=== PATIENT | male | born 1970 | race Caucasian/White ===

== ENCOUNTER 2018-11-08 22:13 | Emergency (ER) | payer OTHER, SELFPAY ==
[2018-11-08] VITALS (11 sets, daily range): BP systolic 108–146; BP diastolic 68–85; PULSE 102–111; RESP 16–22; TEMP 36.7–37.1; O2SAT 88–93
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
[2018-11-08 22:41] LABS: Abs Immature Grans 0.03 k/cumm (0.0-0.09); Absolute Basophil Count 0.02 k/cumm (0.0-0.2); Absolute Lymphocyte Count 1.85 k/cumm (1.2-3.4); Absolute Monocyte Count 0.75 k/cumm (0.11-0.7); Basophils % 0.3; Eosinophils % 1.6; HCT 50.1 % (40.0-50.0); HGB 16.9 g/dL (13.5-17.5); Immature Grans % 0.5; Lymphocytes % 29.6; Mean Corp. HGB Concentration 33.7 g/dL (32.0-36.0); Mean Corpuscular Hemoglobin 32.9 pg (27.0-33.0); Mean Corpuscular Volume 97.7 fL (80-95); Mean Platelet Volume 8.5 fL (8.0-11.0); Platelet Count 117 x1000/uL (130-400); RBC 5.13 m/cumm (4.50-6.00); RBC Distribution Width 13.1 % (11.8-14.1); White Blood Cell Count 6.25 k/cumm (4.4-10.8)
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
[2018-11-08 22:52] LABS: Prothrombin Time 10.3 sec (9.3-11.0)
[2018-11-08] MEDS: Normal Saline Flush 10 ML SYR IVP (22:53)
[2018-11-08] MEDS: THIAMINE 100 MG in Normal Saline 100 ML 200 MG IVPB (22:53)
[2018-11-08] MEDS: Normal Saline 250 ML IV (22:53)
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
[2018-11-08 22:57] LABS: ALT 46 U/L (12-78); AST 82 U/L (15-37); Albumin 2.8 g/dL (3.4-5.0); Alkaline Phosphatase 159 U/L (46-116); Anion Gap 12.6 mmol/L (3-11); BUN 4 mg/dL (7-18); Bilirubin, Total 0.7 mg/dL (0.2-1.0); CO2 26.4 mmol/L (21.0-32.0); CREATININE 0.79 mg/dL (0.70-1.30); Chloride 95 mmol/L (98-107); ETHANOL BLOOD 364.4 mg/dL (<3); Glucose 147 mg/dL (70-100); Potassium 3.8 mmol/L (3.5-5.1); Sodium 134 mmol/L (136-145)
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
[2018-11-08 22:59] LABS: Troponin I < 0.05 ng/mL (0.00-0.06)
[2018-11-08] MEDS: Omnipaque 350 MG/ML 100 ML BTL IJ (23:00)
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
[2018-11-08 23:59] LABS: *AMPHETAMINES SCREEN URINE Negative (Negative); *BARBITURATES SCREEN URINE Negative (Negative); *BENZODIAZEPINES SCREEN URINE Negative (Negative); Cannabinoids THC Negative (Negative); Cocaine Screen,Urine Negative (Negative); METHADONE URINE SCREEN Negative (Negative); OPIATES URINE SCREEN Negative (Negative)
[2018-11-09 00:05] LABS: Tricyclic Antidepressants Negative (Negative)
== END 2018-11-08 23:49 | disposition home or self-care (01) ==
LOC: ER 11-09 00:41
PROVIDERS: Emergency Provider Student in an Organized Health Care Education/Training Program
DX: S00.83XA Contusion of other part of head, initial encounter (principal); S30.1XXA Contusion of abdominal wall, initial encounter; R45.851 Suicidal ideations; D69.6 Thrombocytopenia, unspecified; V43.52XA Car driver injured in collision with other type car in traffic accident, initial encounter; F10.120 Alcohol abuse with intoxication, uncomplicated; Y90.8 Blood alcohol level of 240 mg/100 ml or more; Y35.813A Legal intervention involving manhandling, suspect injured, initial encounter
CPT/HCPCS: 36415; 74177; 80053; 80307; 86850; 86900; 86901; 96361; 96365; 99285; 70450; 71260; 72125; 80320; 84484; 85025; 85610; J3490

== ENCOUNTER 2020-10-24 10:00 | Inpatient (IN) | payer MEDICAID, SELFPAY ==
[2020-10-24] VITALS (58 sets, daily range): BP systolic 94–149; BP diastolic 66–101; PULSE 84–102; RESP 8–32; TEMP 36.3–36.6; O2SAT 75–96
--- NOTE | 2020-10-24 10:00 | RT.EKG_ITS ---
APPROVED REPORT Exam: Resting ECG Reason for Exam: shortness of breath Patient Location: E HR:93 bpm ECG Measurements Heart Rate 93 AXIS DC 149 P 35 QRSd 88 QRS 154 QT 377 T -13 QTc 470 Conclusion Sinus rhythm.. Anteroseptal infarct, age indeterminate...Q >35mS, T neg, V1-V2
[2020-10-24] MEDS: Normal Saline Flush 10 ML SYR IVP ×2 (10:10→15:53)
[2020-10-24] MEDS: Albuterol/Ipratropium 3 ML UPD VIAL UPD (10:35)
--- NOTE | 2020-10-24 10:37 | W.ED.GENAD ---
Discharge Plan Disposition Patient Disposition: [facility] INPATIENT Condition: Stable Discharge Details Clinical Impression: Congestive heart failure (CHF) Admit Date/Time: 10/24/20 13:02 Admit Provider: Fran Hsu Attending Provider: Fran Hsu Primary Care Provider: None,None ED Provider: Tr Ruiz Medical Decision Making This is a pleasant 50-year-old male who reports weeks to months of progressive shortness of breath and asthma, associated with 30 pound weight gain and peripheral edema. He denies to me chest pain. He has not seen a doctor in 30 years and reports that he had been waiting to obtain health insurance. He arrives to the ER with 84% sat on room air, blood pressure 136/98, pulse 96. He is grossly edematous with clinical evidence of fluid overload. Differential diagnosis includes liver disease, CHF, hypoproteinemia, renal disease. IV access established, screening laboratories and screening EKG obtained which shows T wave inversions Q waves anteriorly. Patient's laboratories show a white count of 5, hematocrit of 54, platelets 111. Troponin is negative. Liver enzymes unremarkable. D-dimer is elevated at 2092. Patient referred for imaging of chest and pelvis. CT: See formal report. No evidence of PE. Positive anasarca. At this time, most consistent with fluid overload. No evidence of acute NH. I feel there is high probability that the patient did have previous NH/underlying cardiac dysfunction. Diuretics initiated, the patient will benefit from further restratification and functional study likely to include echocardiogram. Case discussed with Dr. Aleman and patient to be admitted. HPI General Date/Time Provider Initiated Documentation: 10/24/20 10:22. History of Present Illness 50 year old M presents to the emergency department with the chief complaint of Shortness of breath and weight gain with swelling of extremities and abd, described as moderate, and is localized to the chest, abdomen and lower extremity. Patient started experiencing this week(s) and it has been intermittent. Rest improves symptom(s), Movement worsens symptoms . Patient notes shortness of breath; denies chest pain, cough and syncope. Patient did receive the following treatments prior to arrival, none Related Data Home Medications Medication Instructions Recorded Confirmed Unknown [No Known Home Meds] 11/08/18 10/24/20 Allergies Allergy/AdvReac Type Severity Reaction Status Date / Time No Known Allergies Allergy Unverified 10/24/20 10:11 General Stated Complaint: SOB KRISTIN: 2 Review of Systems Narrative: Approximately 30 pound weight gain over weeks to months. Lower extremity and abdomen swelling. Shortness of breath, sometimes with exertion. Denies chest pain. Reports full vaccination for Covid. [facility] Medical History Alcohol abuse Surgical History History of tonsillectomy Family History (Updated 10/24/20 @ 11:03 by Tr Ruiz MD) Mother Heart disease Social History Smoking/Tobacco Use Status: Current every day Tobacco Type: cigarettes Smoking risk assessment performed?: Yes Alcohol Intake: current Alcohol Intake frequency: 3 or more drinks per day Alcohol type: beer Drug use: Never Substance use type: does not use Do you feel safe at home: Yes Do you feel safe in your relationship?: Yes Exam Narrative Exam Narrative: GEN: awake, alert, oriented 3. Pleasant, well groomed, interactive. HEAD: Normocephalic, atraumatic ENT: Mucous membranes moist, oropharynx unremarkable, External ear exam unremarkable EYES: PERRL, EOMI NECK: Full ROM, no JESSICA, no menigismus CHEST/RESP: Nontender, bibasilar rales present CARDIOVASCULAR: RRR, no murmur, rub sabas. 2+ Rad pulse bilateral ABDOMEN: Soft, distended, no mass. +Bowel sounds EXT: Full ROM, 2-3+ peripheral/pretibial edema, no rash Neuro: Grossly normal neurologic exam, conversant, interactive. Psych: Speech fluent, thoughts congruent, affect normal Course Vital Signs Vital signs: Vital Signs Pulse Oximetry 87 L 10/24/20 10:05 Temperature 36.6 C 10/24/20 10:06 Temperature Source Temporal Artery Scan 10/24/20 10:06 Pulse 90 10/24/20 10:16 Pulse 95 H 10/24/20 10:20 Respiratory Rate 25 H 10/24/20 10:20 Respiratory Effort Labored 10/24/20 10:26 Respiratory Depth Normal 10/24/20 10:26 Respiratory Pattern Normal 10/24/20 10:26 Blood Pressure 125/74 10/24/20 10:16 Blood Pressure Mean 85 10/24/20 10:16 Blood Pressure Position Supine 10/24/20 10:06 Pulse Oximetry 84 L 10/24/20 10:20 Oxygen Delivery Method Nasal Cannula 10/24/20 10:12 Oxygen Flow Rate 3 10/24/20 10:12 Pain Level 6 10/24/20 10:06
[2020-10-24 11:10] LABS: Abs Immature Grans 0.04 10^3/uL (0.0-0.06); Absolute Basophil Count 0.04 10^3/uL (0.0-0.2); Absolute Eosinophil Count 0.04 10^3/uL (0.0-0.7); Absolute Lymphocyte Count 1.18 10^3/uL (1.2-3.4); Absolute Monocyte Count 1.04 10^3/uL (0.1-0.8); Absolute Neutrophil Count 3.61 10^3/uL (1.2-6.7); Basophils % 0.7; Eosinophils % 0.7; HCT 54.4 % (40.0-50.0); HGB 16.3 g/dL (13.5-17.5); Immature Grans % 0.7; Lymphocytes % 19.8; MCV 96.8 fL (80-95); MPV 9.6 fL (8.0-11.0); Monocytes % 17.5; Neutrophils % 60.6; Nucleated RBC 0 %; Platelet Count 111 10^3/uL (130-400); RBC 5.62 10^6/uL (4.36-5.78); RDW 14.2 % (11.8-14.1); RDW-SD 51.3 fL; WBC 5.95 10^3/uL (4.4-10.8)
[2020-10-24 11:25] LABS: INR 1.2 (0.9-1.1); Prothrombin Time 11.6 sec (9.3-11.0)
[2020-10-24 11:32] LABS: ALT 34 U/L (16-63); AST 27 U/L (15-37); Albumin 2.7 g/dL (3.4-5.0); Alkaline Phosphatase 138 U/L (46-116); Anion Gap -0.2 mmol/L (3-11); BUN 14 mg/dL (7-18); Bilirubin, Total 0.9 mg/dL (0.2-1.0); CO2 36.2 mmol/L (21.0-32.0); CREATININE 1.1 mg/dL (0.70-1.30); Calcium 8.1 mg/dL (8.5-10.1); Chloride 101 mmol/L (98-107); Glucose 149 mg/dL (74-106); Magnesium 1.9 mg/dL (1.8-2.4); NT-proBNP 4982 pg/mL (<300); Sodium 137 mmol/L (136-145); Total Protein 6.6 g/dL (6.4-8.2); Troponin I < 0.05 ng/mL (<0.06)
[2020-10-24 11:40] LABS: D-Dimer 2092 ng/mlFEU (<500)
[2020-10-24] MEDS: Normal Saline - Diluent 50 ML VIAL IV (12:05)
--- NOTE | 2020-10-24 12:05 | DI.CT_ITS ---
Exam(s) CT CHEST PE ABD PELVIS W EXAM: CT CHEST PE ABD PELVIS W CLINICAL HISTORY: CHF, weight gain, peripheral edema. TECHNIQUE: Imaging Protocol: Axial CT angiography was performed with multi-slice acquisition and m ulti-planar and/or 3D reconstructions. CONTRAST MATERIAL: Intravenous: Omnipaque 350 Contrast volume:100 ml Oral: None COMPARISON: CT CT CHEST/ABD/PEL W from 11/08/2018 FINDINGS: CHEST: PULMONARY ARTERIES: There are no intra-arterial filling defects to suggest the presence of acute pulm onary emboli. LUNGS: There is no evidence of pulmonary infarction.Mild increased markings both lung bases. There a re no pleural effusions.No focal findings in the trachea and mainstem bronchi. MEDIASTINUM: There is no hilar nor mediastinal adenopathy. Visualized thyroid unremarkable. CARDIAC: Mild cardiomegaly. No pericardial effusion. Caliber of the thoracic aorta is within normal limits. OSSEOUS: No significant osseous lesions.. ABDOMEN: There is now generalized symmetrical anasarca as well as a small amount of perihepatic ascites. LIVER: There are no focal hepatic lesions nor dilatation of intrahepatic ducts. GALLBLADDER/BILIARY: No obvious gallbladder pathology. CBD is not dilated. PANCREAS: No evidence of pancreatic mass nor dilatation of the pancreatic duct. SPLEEN: Spleen is not enlarged. There are no intrasplenic lesions. Splenic and portal veins are liu nt. ADRENALS: There are no significant adrenal masses. KIDNEYS:No cysts evident. No calculi nor hydronephrosis. No solid renal masses. ABDOMINAL AORTA: Abdominal aorta is not enlarged. LYMPH NODES: There is no retroperitoneal or para-aortic adenopathy. ABDOMINAL WALL/GI: No evidence of significant anterior abdominal wall hernia. Previously present lef t of center anterior abdominal wall hematoma has significantly decreased in size since November 2018 PELVIS: LYMPH NODES: There is no intrapelvic nor inguinal adenopathy. GI: No evidence of appendicitis.No evidence of sigmoid diverticulitis. URINARY BLADDER: No calculi nor masses evident REPRODUCTIVE: Prostate is not enlarged. OSSEOUS: No significant osseous lesions. IMPRESSION: 1. No evidence of acute pulmonary emboli nor pulmonary infarction. 2. There are no pleural effusions.Mild cardiomegaly noted 3. There is now generalized anasarca as well as a small amount of ascites and haziness of the mesente ry. 4. There is no evidence of bowel obstruction, free air, nor abscess 5. The anterior abdominal wall subcutaneous hematoma which was evident on the CT scan of November 2018 casas s significantly decreased in size. Report called to ER physician RADIATION DOSE DELIVERED: 2,575.43mGy.cm Total DLP DATA REPOSITORY: All CT scans at this facility are submitted to the National Radiology Data Registry (NRDR) Dose Index Registry (DIR) with the [employer] (ACR). RADIATION OPTIMIZATION: All CT scans at this facility use at least one of these dose optimization te chniques: automated exposure control; mA and/or kV adjustment per patient size (includes targeted exa ms where dose is matched to clinical indication); or iterative reconstruction.
[2020-10-24] MEDS: Omnipaque 350 MG/ML 100 ML BTL IJ (12:07)
[2020-10-24] MEDS: Omnipaque 350 MG/ML 50 ML BTL IJ (12:09)
[2020-10-24 12:54] LABS: Source Nasal/Nares
[2020-10-24] MEDS: Furosemide 20 MG/2 ML VIAL IVP (12:55)
[2020-10-24] MEDS: Aspirin 325 MG TAB PO (13:00)
--- NOTE | 2020-10-24 13:59 | W.PM.HP.N ---
Date of service: 10/24/20 Time of Service: 13:59 Assessment and Plan Assessment and plan (1) Congestive heart failure (CHF): Status: Chronic Assessment and plan: admit to med/surg, telemetry echocardiogram results pending continue diuresis. cycle troponins monitor I&O, daily weights. (2) Morbid obesity: Status: Acute Assessment and plan: add hemoglobin A1C nutrition consult (3) Nicotine dependence: Status: Acute Assessment and plan: replacement while hospitalized (4) DVT prophylaxis: Status: Acute Assessment and plan: enoxaparin ashanti wraps (5) Discharge planning issues: Status: Acute Assessment and plan: case management following will need to establish with pcp anticipate discharge to home with no services. discussed with Dr Hsu. History of Present Illness History of Present Illness Chief Complaint: shortness of breath Narrative: This is a 50-year-old male who reports weeks to months of progressive shortness of breath and asthma, associated with 30 pound weight gain and peripheral edema. He has not seen a doctor in 30 years and reports that he had been waiting to obtain health insurance. He arrives to the ED with 84% sat on room air, blood pressure 136/98, pulse 96. He is grossly edematous with clinical evidence of fluid overload. Work up show a white count of 5, hematocrit of 54, platelets 111. Troponin is negative. Liver enzymes unremarkable. D-dimer is elevated at 2092. CT chest abd/pelvis shows no evidence of PE. Positive anasarca. Received IV lasix for fluid overload. No evidence of acute GA. Case was discussed with hospitalist services who accepts for admission for further management, monitoring and evaluation. Review of Systems All systems reviewed & are unremarkable except as noted in HPI and below Constitutional Constitutional: Denies fever(s) ENT Ears, Nose, Mouth, and Throat: Denies vertigo and Denies dizziness Cardiovascular Cardiovascular: Denies chest pain, Reports leg edema, Reports dyspnea, Reports dyspnea on exertion and Reports orthopnea Respiratory Respiratory: Reports dyspnea and Reports dyspnea on exertion Gastrointestinal Gastrointestinal: Denies abdominal pain Genitourinary Genitourinary: Denies difficulty urinating Musculoskeletal Musculoskeletal: Denies myalgias Integumentary/Breasts Skin/Breast: Denies lesions and Denies rash Neurologic Neurologic: Denies confusion, Denies vertigo and Denies dizziness Psychiatric Psychiatric: Denies confusion [facility] Medical History Alcohol abuse Surgical History History of tonsillectomy Family History (Updated 10/24/20 @ 11:03 by Tr Ruiz MD) Mother Heart disease Social History Smoking/Tobacco Use Status: Current every day Tobacco Type: cigarettes Smoking risk assessment performed?: Yes Alcohol Intake: current Alcohol Intake frequency: 3 or more drinks per day Alcohol type: beer Drug use: Never Substance use type: does not use Do you feel safe at home: Yes Do you feel safe in your relationship?: Yes Meds Allergies and Home Medications Allergies Allergy/AdvReac Type Severity Reaction Status Date / Time No Known Allergies Allergy Unverified 10/24/20 10:11 Home Medications Medication Instructions Recorded Confirmed Type Unknown [No Known Home Meds] 11/08/18 10/24/20 History Exam Narrative Exam Narrative: GEN: awake, alert, oriented 3. Pleasant, face flushed, morbidly obese HEAD: Normocephalic, atraumatic ENT: Mucous membranes moist, oropharynx unremarkable EYES: non-icteric, EOMI NECK: short CHEST/RESP: respirations even and unlabored, bases diminished, no wheezing CARDIOVASCULAR: RRR, no murmur, anasarca ABDOMEN: obese, soft, distended, +Bowel sounds EXT: Full ROM, 2-3+ edema, chronic discoloration to bilateral lower extremity consistent with venous stasis changes Neuro: awake and oriented. Psych: mood and affect normal Results Labs Result diagrams: 10/24/20 11:00 10/24/20 11:00 Labs: Laboratory Results - last 24 hr 10/24/20 10/24/20 10/24/20 10:10 10:10 10:10 WBC Cancelled RBC Cancelled Hgb Cancelled Hct Cancelled MCV Cancelled MCH Cancelled MCHC Cancelled RDW Cancelled Plt Count Cancelled MPV Cancelled Immature Gran % Cancelled Neutrophils % Cancelled Band Neutrophils % Cancelled Lymphocytes % Cancelled Atypical Lymphs % Cancelled Monocytes % Cancelled Eosinophils % Cancelled Basophils % Cancelled Metamyelocytes % Cancelled Myelocytes % Cancelled Promyelocytes % Cancelled Other Cells % Cancelled Nucleated RBC % Cancelled Absolute Neutrophils Cancelled Absolute Lymphocytes Cancelled Absolute Monocytes Cancelled Absolute Eosinophils Cancelled Absolute Basophils Cancelled RBC Morphology Cancelled Polychromasia Cancelled Hypochromasia Cancelled Poikilocytosis Cancelled Basophilic Stippling Cancelled Anisocytosis Cancelled Microcytosis Cancelled Macrocytosis Cancelled Spherocytes Cancelled Tear Drop Cells Cancelled Ovalocytes Cancelled Stomatocytes Cancelled [place] Bodies Cancelled [place] Cells/Echinocytes Cancelled Acanthocytes (Spur) Cancelled Schistocytes Cancelled PT Cancelled INR Cancelled APTT Cancelled D-Dimer Cancelled Sodium Cancelled Potassium Cancelled Chloride Cancelled Carbon Dioxide Cancelled Anion Gap Cancelled BUN Cancelled Creatinine Cancelled Estimated GFR/1.73 m2 Cancelled Glucose Cancelled Calcium Cancelled Magnesium Cancelled Total Bilirubin Cancelled AST Cancelled ALT Cancelled Alkaline Phosphatase Cancelled Troponin I Cancelled NT-Pro-B Natriuret Pep Cancelled Total Protein Cancelled Albumin Cancelled COVID-19 Source 10/24/20 10/24/20 10/24/20 11:00 11:00 11:00 WBC 5.95 RBC 5.62 Hgb 16.3 Hct 54.4 H MCV 96.8 H MCH 29.0 MCHC 30.0 L RDW 14.2 H Plt Count 111 L MPV 9.6 Immature Gran % 0.7 Neutrophils % 60.6 Band Neutrophils % Lymphocytes % 19.8 Atypical Lymphs % Monocytes % 17.5 Eosinophils % 0.7 Basophils % 0.7 Metamyelocytes % Myelocytes % Promyelocytes % Other Cells % Nucleated RBC % 0 Absolute Neutrophils 3.61 Absolute Lymphocytes 1.18 L Absolute Monocytes 1.04 H Absolute Eosinophils 0.04 Absolute Basophils 0.04 RBC Morphology Polychromasia Hypochromasia Poikilocytosis Basophilic Stippling Anisocytosis Microcytosis Macrocytosis Spherocytes Tear Drop Cells Ovalocytes Stomatocytes [place] Bodies [place] Cells/Echinocytes Acanthocytes (Spur) Schistocytes PT 11.6 H INR 1.2 H APTT 24.0 D-Dimer 2092 H Sodium 137 Potassium 5.0 Chloride 101 Carbon Dioxide 36.2 H Anion Gap -0.2 L BUN 14 Creatinine 1.1 Estimated GFR/1.73 m2 >= 60.00 Glucose 149 H Calcium 8.1 L Magnesium 1.9 Total Bilirubin 0.9 AST 27 ALT 34 Alkaline Phosphatase 138 H Troponin I < 0.05 NT-Pro-B Natriuret Pep 4982 H Total Protein 6.6 Albumin 2.7 L COVID-19 Source 10/24/20 12:45 WBC RBC Hgb Hct MCV MCH MCHC RDW Plt Count MPV Immature Gran % Neutrophils % Band Neutrophils % Lymphocytes % Atypical Lymphs % Monocytes % Eosinophils % Basophils % Metamyelocytes % Myelocytes % Promyelocytes % Other Cells % Nucleated RBC % Absolute Neutrophils Absolute Lymphocytes Absolute Monocytes Absolute Eosinophils Absolute Basophils RBC Morphology Polychromasia Hypochromasia Poikilocytosis Basophilic Stippling Anisocytosis Microcytosis Macrocytosis Spherocytes Tear Drop Cells Ovalocytes Stomatocytes [place] Bodies [place] Cells/Echinocytes Acanthocytes (Spur) Schistocytes PT INR APTT D-Dimer Sodium Potassium Chloride Carbon Dioxide Anion Gap BUN Creatinine Estimated GFR/1.73 m2 Glucose Calcium Magnesium Total Bilirubin AST ALT Alkaline Phosphatase Troponin I NT-Pro-B Natriuret Pep Total Protein Albumin COVID-19 Source Nasal/nares Last Vital Signs Temp 36.6 C 10/24/20 10:06 Pulse 92 H 10/24/20 10:31 Resp 22 10/24/20 10:40 BP 125/83 10/24/20 10:31 Pulse Ox 93 10/24/20 10:40
[2020-10-24 14:11] LABS: Troponin I < 0.05 ng/mL (<0.06)
[2020-10-24] MEDS: Furosemide 40 MG/4 ML VIAL IVP (15:53)
--- NOTE | 2020-10-24 18:38 | NUR.NOTE ---
Nursing Note: Pt o2 saturation decreasing intermittently to 75% while asleep on 4L 02 via NC. Resp therapy notified. Pt placed on CPAP - tolerating well 02 saturation 92%.
[2020-10-24 20:35] LABS: Troponin I < 0.05 ng/mL (<0.06)
[2020-10-24 22:07] LABS: COVID-19 PCR Negative (Negative)
[2020-10-25] VITALS (19 sets, daily range): BP systolic 117–134; BP diastolic 63–82; PULSE 89–104; RESP 12–22; TEMP 36.4–37.3; O2SAT 90–100
[2020-10-25 07:01] LABS: Abs Immature Grans 0.04 10^3/uL (0.0-0.06); Absolute Basophil Count 0.04 10^3/uL (0.0-0.2); Absolute Eosinophil Count 0.08 10^3/uL (0.0-0.7); Absolute Lymphocyte Count 1.06 10^3/uL (1.2-3.4); Absolute Monocyte Count 0.89 10^3/uL (0.1-0.8); Absolute Neutrophil Count 3.98 10^3/uL (1.2-6.7); Basophils % 0.7; Eosinophils % 1.3; HGB 17.4 g/dL (13.5-17.5); Immature Grans % 0.7; Lymphocytes % 17.4; MCH 29.5 pg (27.0-33.0); MCHC 29.3 % (32.0-36.0); MCV 100.8 fL (80-95); Monocytes % 14.6; Neutrophils % 65.3; Nucleated RBC 0 %; Platelet Count 105 10^3/uL (130-400); RBC 5.89 10^6/uL (4.36-5.78); RDW 14.4 % (11.8-14.1); RDW-SD 54.4 fL; WBC 6.09 10^3/uL (4.4-10.8)
[2020-10-25 07:08] LABS: HCT 59.4 % (40.0-50.0)
--- NOTE | 2020-10-25 07:14 | PDOC.CMIN ---
- If Service Date Differs Date of service: 10/25/20 Time of Service: 07:14 Care Management Initial Assess REASON FOR HOSPITALIZATION:: CHF PAST MEDICAL HISTORY/PAST SURGICAL HISTORY:: Medical History. Alcohol abuse. Surgical History . History of tonsillectomy PREVIOUS FUNCTIONAL STATUS/SOCIAL/FAMILY SUPPORTS:: Gustavo lives alone in a single family home in [place], [place]. He has 2 sons who live locally that he is close to. Gustavo identifies friends and family as strong sources of support for him, including his sons, his Mom and a nephew. He works in the kitchen at [employer], is independent at baseline and continues to drive. CURRENT FUNCTIONAL STATUS:: Gustavo was sitting up in a chair when CM met with him. He expressed concern about being in the hospital as he has no insurance yet. He stated that he is about 2 weeks away from having insurance. He has just started working at [employer] and his insurance will be effective when he reaches 60 days. Gustavo also is without a PCP. CM explained the process for establishing with a new PCP and assured him that he will be scheduled for an appointment at discharge. If he chooses to pursue that provider, the practice staff will assist with the process. CM provided Gustavo with a copy of the [facility] Patient Assistance packet. ADVANCE DIRECTIVES:: none on file and is not interested at this time. Has patient been provided with info about the portal/API?: Yes Did the patient sign up for the portal?: No CODE STATUS:: Full Code INSURANCE COVERAGE / FINANCIAL ISSUES:: self pay CURRENT HOME/COMMUNITY SERVICES/EQUIPMENT:: none PRIMARY CARE PHYSICIAN:: none. Julia Oliver on as tele-doc POTENTIAL DISCHARGE NEEDS:: establish with PCP. Insurance PATIENT/FAMILY EDUCATION NEEDS:: Review of discharge plan, limitations, follow up plan, medications, Ask Me Three ANTICIPATED BARRIERS TO DISCHARGE:: Lack of insurance and a PCP may provide a bit of a barrier if additional services are needed at discharge. TRANSPORTATION:: via private vehicle with friends/family PLAN:: Gustavo will likely be discharged home with no new services. He will follow up with the on-call PCP ( Julia Oliver) and discharge plan of care. Gustavo will transport with friends or family. CM will continue to support Gustavo and assess for discharge planning needs.
[2020-10-25 07:15] LABS: Anion Gap 4.6 mmol/L (3-11); BUN 15 mg/dL (7-18); CO2 36.4 mmol/L (21.0-32.0); CREATININE 1.1 mg/dL (0.70-1.30); Calcium 8.3 mg/dL (8.5-10.1); Chloride 96 mmol/L (98-107); Glucose 130 mg/dL (74-106); Potassium 4.4 mmol/L (3.5-5.1); Sodium 137 mmol/L (136-145)
[2020-10-25 07:16] LABS: Troponin I < 0.05 ng/mL (<0.06)
[2020-10-25] MEDS: Enoxaparin 40 MG/0.4 ML SYR SC (09:21)
--- NOTE | 2020-10-25 09:46 | W.PM.PROGNOT ---
Date of Service Date of service: 10/25/20 Time of Service: 09:46 Assessment and Plan Assessment and plan (1) Respiratory failure: Status: Acute Assessment and plan: with multiple etiologies suspected to be contributing: suspected KATY: noted to desat into the 70's overnight. cpap was applied with improvement while sleeping suspected COPD: long history of tobacco abuse but no PFT/work up. will start symbicort CHF: duiresing well but remains hypoxic with moderate oxygen requirements PE: ruled out by CTA pneumonia: no evidence on CT scan, no fever, no cough. (2) Congestive heart failure (CHF): Status: Chronic Assessment and plan: troponin has remained negative echocardiogram:no obvious segmental wall motion abnormalities, RV moderately dilated and moderately hypokinetic, PASP 46, no significant valvular disease continue diuresis. monitor I&O, daily weights. (3) Diabetes mellitus type 2 in obese: Status: Acute Assessment and plan: new diagnosis A1C 7.0 diabetic diet diabetic education (4) Morbid obesity: Status: Chronic Assessment and plan: add hemoglobin A1C nutrition consult (5) Nicotine dependence: Status: Chronic Assessment and plan: replacement while hospitalized (6) DVT prophylaxis: Status: Acute Assessment and plan: enoxaparin ashanti wraps (7) Discharge planning issues: Status: Acute Assessment and plan: case management following will need to establish with pcp anticipate discharge to home with no services. discussed with Dr Hsu. Subjective Subjective Interval history since last seen: continues to remain quite short of breath with 4 l/nc oxygen requirements despite diuresing 7.7 kg since admission. no fever or cough. Exam Narrative Exam Narrative: GEN: awake, alert, oriented 3. Pleasant, face flushed, morbidly obese HEAD: Normocephalic, atraumatic ENT: Mucous membranes moist, oropharynx unremarkable EYES: non-icteric, EOMI NECK: short CHEST/RESP: respirations even and unlabored, bases diminished, no wheezing CARDIOVASCULAR: RRR, no murmur, anasarca ABDOMEN: obese, soft, distended, +Bowel sounds EXT: Full ROM, 2-3+ edema, chronic discoloration to bilateral lower extremity consistent with venous stasis changes Neuro: awake and oriented. Psych: mood and affect normal Objective Last Vital Signs Temp 36.8 C 10/25/20 01:00 Pulse 104 H 10/25/20 04:40 Resp 22 10/25/20 01:00 BP 134/65 10/25/20 04:40 Pulse Ox 91 L 10/25/20 04:40 Laboratory Results - last 24 hr 10/24/20 10/24/20 10/24/20 10:10 10:10 10:10 WBC Cancelled RBC Cancelled Hgb Cancelled Hct Cancelled MCV Cancelled MCH Cancelled MCHC Cancelled RDW Cancelled Plt Count Cancelled MPV Cancelled Immature Gran % Cancelled Neutrophils % Cancelled Band Neutrophils % Cancelled Lymphocytes % Cancelled Atypical Lymphs % Cancelled Monocytes % Cancelled Eosinophils % Cancelled Basophils % Cancelled Metamyelocytes % Cancelled Myelocytes % Cancelled Promyelocytes % Cancelled Other Cells % Cancelled Nucleated RBC % Cancelled Absolute Neutrophils Cancelled Absolute Lymphocytes Cancelled Absolute Monocytes Cancelled Absolute Eosinophils Cancelled Absolute Basophils Cancelled RBC Morphology Cancelled Polychromasia Cancelled Hypochromasia Cancelled Poikilocytosis Cancelled Basophilic Stippling Cancelled Anisocytosis Cancelled Microcytosis Cancelled Macrocytosis Cancelled Spherocytes Cancelled Tear Drop Cells Cancelled Ovalocytes Cancelled Stomatocytes Cancelled [place] Bodies Cancelled [place] Cells/Echinocytes Cancelled Acanthocytes (Spur) Cancelled Schistocytes Cancelled PT Cancelled INR Cancelled APTT Cancelled D-Dimer Cancelled Sodium Cancelled Potassium Cancelled Chloride Cancelled Carbon Dioxide Cancelled Anion Gap Cancelled BUN Cancelled Creatinine Cancelled Estimated GFR/1.73 m2 Cancelled Glucose Cancelled Hemoglobin A1c Calcium Cancelled Magnesium Cancelled Total Bilirubin Cancelled AST Cancelled ALT Cancelled Alkaline Phosphatase Cancelled Troponin I Cancelled NT-Pro-B Natriuret Pep Cancelled Total Protein Cancelled Albumin Cancelled COVID-19 Source SARS-CoV-2 (PCR) 10/24/20 10/24/20 10/24/20 11:00 11:00 11:00 WBC 5.95 RBC 5.62 Hgb 16.3 Hct 54.4 H MCV 96.8 H MCH 29.0 MCHC 30.0 L RDW 14.2 H Plt Count 111 L MPV 9.6 Immature Gran % 0.7 Neutrophils % 60.6 Band Neutrophils % Lymphocytes % 19.8 Atypical Lymphs % Monocytes % 17.5 Eosinophils % 0.7 Basophils % 0.7 Metamyelocytes % Myelocytes % Promyelocytes % Other Cells % Nucleated RBC % 0 Absolute Neutrophils 3.61 Absolute Lymphocytes 1.18 L Absolute Monocytes 1.04 H Absolute Eosinophils 0.04 Absolute Basophils 0.04 RBC Morphology Polychromasia Hypochromasia Poikilocytosis Basophilic Stippling Anisocytosis Microcytosis Macrocytosis Spherocytes Tear Drop Cells Ovalocytes Stomatocytes [place] Bodies [place] Cells/Echinocytes Acanthocytes (Spur) Schistocytes PT 11.6 H INR 1.2 H APTT 24.0 D-Dimer 2092 H Sodium 137 Potassium 5.0 Chloride 101 Carbon Dioxide 36.2 H Anion Gap -0.2 L BUN 14 Creatinine 1.1 Estimated GFR/1.73 m2 >= 60.00 Glucose 149 H Hemoglobin A1c Calcium 8.1 L Magnesium 1.9 Total Bilirubin 0.9 AST 27 ALT 34 Alkaline Phosphatase 138 H Troponin I < 0.05 NT-Pro-B Natriuret Pep 4982 H Total Protein 6.6 Albumin 2.7 L COVID-19 Source SARS-CoV-2 (PCR) 10/24/20 10/24/20 10/24/20 11:00 12:45 13:40 WBC RBC Hgb Hct MCV MCH MCHC RDW Plt Count MPV Immature Gran % Neutrophils % Band Neutrophils % Lymphocytes % Atypical Lymphs % Monocytes % Eosinophils % Basophils % Metamyelocytes % Myelocytes % Promyelocytes % Other Cells % Nucleated RBC % Absolute Neutrophils Absolute Lymphocytes Absolute Monocytes Absolute Eosinophils Absolute Basophils RBC Morphology Polychromasia Hypochromasia Poikilocytosis Basophilic Stippling Anisocytosis Microcytosis Macrocytosis Spherocytes Tear Drop Cells Ovalocytes Stomatocytes [place] Bodies [place] Cells/Echinocytes Acanthocytes (Spur) Schistocytes PT INR APTT D-Dimer Sodium Potassium Chloride Carbon Dioxide Anion Gap BUN Creatinine Estimated GFR/1.73 m2 Glucose Hemoglobin A1c 7.0 H Calcium Magnesium Total Bilirubin AST ALT Alkaline Phosphatase Troponin I < 0.05 NT-Pro-B Natriuret Pep Total Protein Albumin COVID-19 Source Nasal/nares SARS-CoV-2 (PCR) Negative 10/24/20 10/25/20 10/25/20 20:00 06:19 06:19 WBC 6.09 RBC 5.89 H Hgb 17.4 Hct 59.4 H* MCV 100.8 H D MCH 29.5 MCHC 29.3 L RDW 14.4 H Plt Count 105 L MPV 10.0 Immature Gran % 0.7 Neutrophils % 65.3 Band Neutrophils % Lymphocytes % 17.4 Atypical Lymphs % Monocytes % 14.6 Eosinophils % 1.3 Basophils % 0.7 Metamyelocytes % Myelocytes % Promyelocytes % Other Cells % Nucleated RBC % 0 Absolute Neutrophils 3.98 Absolute Lymphocytes 1.06 L Absolute Monocytes 0.89 H Absolute Eosinophils 0.08 Absolute Basophils 0.04 RBC Morphology Polychromasia Hypochromasia Poikilocytosis Basophilic Stippling Anisocytosis Microcytosis Macrocytosis Spherocytes Tear Drop Cells Ovalocytes Stomatocytes [place] Bodies [place] Cells/Echinocytes Acanthocytes (Spur) Schistocytes PT INR APTT D-Dimer Sodium 137 Potassium 4.4 Chloride 96 L Carbon Dioxide 36.4 H Anion Gap 4.6 BUN 15 Creatinine 1.1 Estimated GFR/1.73 m2 >= 60.00 Glucose 130 H Hemoglobin A1c Calcium 8.3 L Magnesium Total Bilirubin AST ALT Alkaline Phosphatase Troponin I < 0.05 < 0.05 NT-Pro-B Natriuret Pep Total Protein Albumin COVID-19 Source SARS-CoV-2 (PCR)
--- NOTE | 2020-10-25 10:27 | DI.RAD_ITS ---
Exam(s) XR CHEST 2V PA LATERAL EXAM: XR CHEST 2V PA LATERAL CLINICAL HISTORY: shortness of breath. TECHNIQUE: 2D digital imaging was performed. COMPARISON: CT CT CHEST PE ABD PELVIS W from 10/24/[address] CHEST PE ABD PELVIS W from 10/24/2020 FINDINGS: There is cardiomegaly noted. Mediastinum is not widened. There is infiltrate in the left lower lobe left lung base.. Small amount of left pleural fluid. Mil dly elevated right hemidiaphragm. No pulmonary edema. No pneumothorax. IMPRESSION: Mild left lower lobe infiltrate. Small left pleural effusion. Cardiomegaly. No pulmonary edema. DATA REPOSITORY: RADIATION DOSE DELIVERED:
[2020-10-25] MEDS: Furosemide 40 MG/4 ML VIAL IVP ×2 (10:34→16:31)
[2020-10-25] MEDS: Normal Saline Flush 10 ML SYR IVP (10:34)
[2020-10-25] MEDS: Budesonide/Formoterol 160/4.5 6 GM 60 PUFF INH IH ×2 (12:54→20:12)
--- NOTE | 2020-10-25 15:14 | NUR.NOTE ---
Was given report on patient by TANJA Sahu in the ICU at 1207. Transferred patient out of ICU via wheelchair to room 206.
[2020-10-25] MEDS: Melatonin 3 MG TAB 6 MG PO (21:49)
--- NOTE | 2020-10-26 | DI.US_ITS ---
Exam(s) US ABDOMEN LIMITED EXAM: US ABDOMEN LIMITED CLINICAL HISTORY: r/o ascities TECHNIQUE: Ultrasound abdomen performed using standard protocol. COMPARISON: No exams were available for comparison FINDINGS: Examination limited by patient body habitus. ABDOMINAL AORTA AND IVC: Not well visualized. PANCREAS: Not adequately visualized due to overlying bowel in the patient body habitus. LIVER: Normal. There is limited visualization. Hepatopedal flow in the Portal Vein. The liver measu res 18.5 cm long. GALLBLADDER: No evidence of cholelithiasis. No evidence of wall thickening. No pericholecystic fluid identified. BILIARY SYSTEM: No intrahepatic biliary ductal dilation. The extrahepatic bile ducts could not be vis ualized sonographically. RASCON'S SIGN: Negative. Right kidney: Normal in size. No evidence of renal calculi. No evidence of hydronephrosis. No renal mass or cyst identified. ASCITES: None seen. IMPRESSION: 1. Examination is limited by patient body habitus. 2. No ascites is seen sonographically. 3. Hepatomegaly. DATA REPOSITORY:
[2020-10-26 03:03] VITALS: O2SAT 94
[2020-10-26 07:03] LABS: Abs Immature Grans 0.02 10^3/uL (0.0-0.06); Absolute Basophil Count 0.02 10^3/uL (0.0-0.2); Absolute Eosinophil Count 0.12 10^3/uL (0.0-0.7); Absolute Lymphocyte Count 1.01 10^3/uL (1.2-3.4); Basophils % 0.3; Eosinophils % 1.9; HCT 53.4 % (40.0-50.0); HGB 16.1 g/dL (13.5-17.5); Immature Grans % 0.3; Lymphocytes % 16.4; MCHC 30.1 % (32.0-36.0); MPV 9.4 fL (8.0-11.0); Monocytes % 16.2; Neutrophils % 64.9; Nucleated RBC 0 %; Platelet Count 120 10^3/uL (130-400); RBC 5.56 10^6/uL (4.36-5.78); RDW-SD 49.7 fL; WBC 6.17 10^3/uL (4.4-10.8)
[2020-10-26 07:11] VITALS: BP 124/80; PULSE 93; RESP 19; TEMP 36.4; O2SAT 95
[2020-10-26] MEDS: Normal Saline Flush 10 ML SYR IVP (07:34)
[2020-10-26] MEDS: Enoxaparin 40 MG/0.4 ML SYR SC (07:34)
[2020-10-26] MEDS: Furosemide 40 MG/4 ML VIAL IVP (07:34)
[2020-10-26 07:37] LABS: ALT 25 U/L (16-63); AST 22 U/L (15-37); Albumin 2.6 g/dL (3.4-5.0); Alkaline Phosphatase 125 U/L (46-116); Anion Gap 2.4 mmol/L (3-11); BUN 12 mg/dL (7-18); Bilirubin, Total 0.9 mg/dL (0.2-1.0); CO2 39.6 mmol/L (21.0-32.0); CREATININE 0.8 mg/dL (0.70-1.30); Calcium 8.1 mg/dL (8.5-10.1); Chloride 96 mmol/L (98-107); Glucose 118 mg/dL (74-106); Potassium 3.9 mmol/L (3.5-5.1); Sodium 138 mmol/L (136-145); Total Protein 6.6 g/dL (6.4-8.2)
[2020-10-26] MEDS: Potassium Chloride 20 MEQ TABCR 40 MEQ PO (08:48)
[2020-10-26] MEDS: Budesonide/Formoterol 160/4.5 6 GM 60 PUFF INH IH ×2 (10:01→20:36)
--- NOTE | 2020-10-26 11:30 | W.PM.PROGNOT ---
Date of Service Date of service: 10/26/20 Time of Service: 11:30 Assessment and Plan Assessment and plan (1) Respiratory failure: Start date: 10/26/20 Start time: 11:58 Status: Acute Assessment and plan: with multiple etiologies suspected to be contributing: suspected KATY: noted to desat into the 70's overnight. Refused bipap overnight Will need sleep study and PFT as outpatient suspected COPD: long history of tobacco abuse will start symbicort CHF: duiresing well but remains hypoxic with moderate oxygen requirements placed on lasix drip as below Qualifiers: Chronicity: acute on chronic Respiratory failure complication: hypoxia Qualified Code(s): J96.21 - Acute and chronic respiratory failure with hypoxia (2) Congestive heart failure (CHF): Start date: 10/26/20 Start time: 12:00 Status: Chronic Assessment and plan: troponin has remained negative echocardiogram:no obvious segmental wall motion abnormalities, RV moderately dilated and moderately hypokinetic, PASP 46, no significant valvular disease continue diuresis. monitor I&O, daily weights. Qualifiers: Heart failure type: combined systolic and diastolic (3) Diabetes mellitus type 2 in obese: Start date: 10/26/20 Start time: 12:01 Status: Acute Assessment and plan: new diagnosis A1C 7.0 diabetic diet diabetic education SSI while in hospital Start metformin on discharge along with checking glucose BID (4) Morbid obesity: Start date: 10/26/20 Start time: 12:02 Status: Chronic Assessment and plan: as above nutrition consult encourage wt loss (5) Nicotine dependence: Start date: 10/26/20 Start time: 12:03 Status: Chronic Assessment and plan: replacement while hospitalized Qualifiers: Nicotine product type: cigarettes Substance use status: unspecified nicotine-induced disorder Qualified Code(s): F17.219 - Nicotine dependence, cigarettes, with unspecified nicotine-induced disorders (6) EtOH dependence: Start date: 10/26/20 Start time: 12:04 Status: Chronic Assessment and plan: Admits to drinking 12 pack of beer daily prior to starting at the [employer] for years 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 He denies withdrawal last drink days ago he states. Will obtain LFT's abd u/s r/o hep c, ascities. Qualifiers: Substance use status: uncomplicated Qualified Code(s): F10.20 - Alcohol dependence, uncomplicated (7) DVT prophylaxis: Start date: 10/26/20 Start time: 12:03 Status: Acute Assessment and plan: enoxaparin ashanti wraps (8) Discharge planning issues: Start date: 10/26/20 Start time: 12:03 Status: Acute Assessment and plan: case management following will need to establish with pcp anticipate discharge to home with no services. Likely will require oxygen discussed with Dr Hsu. Subjective Subjective Patient reports: other Interval history since last seen: continues to have edema everywhere. 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 Will check LFT's. He admits to not receiving medical care in a long time. Will obtain u/s r/o ascities. Very little change in wt. Renal function good will place on lasix drip. Obtain lft and hep panel. Exam Narrative Exam Narrative: GEN: awake, alert, oriented 3. Pleasant, face flushed, morbidly obese HEAD: Normocephalic, atraumatic ENT: Mucous membranes moist, oropharynx unremarkable EYES: non-icteric, EOMI NECK: short CHEST/RESP: respirations even and unlabored, bases diminished, no wheezing CARDIOVASCULAR: RRR, no murmur, anasarca ABDOMEN: obese, soft, distended, +Bowel sounds EXT: Full ROM, 2-3+ edema, chronic discoloration to bilateral lower extremity consistent with venous stasis changes Neuro: awake and oriented. Psych: mood and affect normal Objective Last Vital Signs Temp 36.4 C L 10/26/20 07:11 Pulse 93 H 10/26/20 07:11 Resp 19 10/26/20 07:11 BP 124/80 10/26/20 07:11 Pulse Ox 95 10/26/20 07:11 Laboratory Results - last 24 hr 10/26/20 10/26/20 06:15 06:15 WBC 6.17 RBC 5.56 Hgb 16.1 Hct 53.4 H MCV 96.0 H D MCH 29.0 MCHC 30.1 L RDW 14.0 Plt Count 120 L MPV 9.4 Immature Gran % 0.3 Neutrophils % 64.9 Lymphocytes % 16.4 Monocytes % 16.2 Eosinophils % 1.9 Basophils % 0.3 Nucleated RBC % 0 Absolute Neutrophils 4.00 Absolute Lymphocytes 1.01 L Absolute Monocytes 1.00 H Absolute Eosinophils 0.12 Absolute Basophils 0.02 Sodium 138 Potassium 3.9 Chloride 96 L Carbon Dioxide 39.6 H Anion Gap 2.4 L BUN 12 Creatinine 0.8 Estimated GFR/1.73 m2 >= 60.00 Glucose 118 H Calcium 8.1 L Total Bilirubin 0.9 AST 22 ALT 25 Alkaline Phosphatase 125 H Total Protein 6.6 Albumin 2.6 L
[2020-10-26 11:35] VITALS: BP 124/80; PULSE 86; RESP 19; TEMP 36.9; O2SAT 92
[2020-10-26 12:47] LABS: Bilirubin, Direct 0.3 mg/dL (0.0-0.2)
[2020-10-26] MEDS: Spironolactone 50 MG TAB 100 MG PO (13:01)
--- NOTE | 2020-10-26 16:09 | PDOC.CMPRO ---
- If Service Date Differs Date of service: 10/26/20 Time of Service: 16:20 Care Management Progress Note S/O: Gustavo was sitting up in a chair when CM met with him. Mo met with [employer] today, Greta and Padmini, navigators signed him up for medicaid so if needed, he will have coverage for home oxygen. CM will check with ACCESS tomorrow re: active medicaid as [employer] report his new coverage should be activated within twenty four hours. CM continues to follow. A: 50 year old admitted to [facility] 10/24/20 for CHF P: Gustavo may require new home oxygen upon discharge; CM coordinated [employer] insurance coverage and Gustavo was signed up for [place] YODIT today; should be activated by tomorrow per [facility] report. He will follow up with the on-call PCP (Julia Oliver) and his discharge plan of care as prescribed. Gustavo will transport with friends or family. CM will continue to support Gustavo and assess for discharge planning needs.
[2020-10-26 19:40] VITALS: BP 123/83; PULSE 91; RESP 18; TEMP 36.6; O2SAT 95
[2020-10-26] MEDS: Melatonin 3 MG TAB 6 MG PO (21:33)
[2020-10-26 23:34] VITALS: BP 124/83; PULSE 100; RESP 18; TEMP 36.9; O2SAT 85
[2020-10-27 05:41] VITALS: O2SAT 91
[2020-10-27 07:30] LABS: Abs Immature Grans 0.04 10^3/uL (0.0-0.06); Absolute Basophil Count 0.04 10^3/uL (0.0-0.2); Absolute Lymphocyte Count 1.19 10^3/uL (1.2-3.4); Absolute Monocyte Count 1.07 10^3/uL (0.1-0.8); Absolute Neutrophil Count 4.17 10^3/uL (1.2-6.7); Basophils % 0.6; Eosinophils % 1.5; HGB 17.2 g/dL (13.5-17.5); Immature Grans % 0.6; MCH 29.2 pg (27.0-33.0); MCHC 30.7 % (32.0-36.0); MCV 95.1 fL (80-95); MPV 9.5 fL (8.0-11.0); Monocytes % 16.2; Neutrophils % 63.1; Nucleated RBC 0 %; Platelet Count 136 10^3/uL (130-400); RBC 5.89 10^6/uL (4.36-5.78); RDW 13.8 % (11.8-14.1); RDW-SD 48.4 fL; WBC 6.61 10^3/uL (4.4-10.8)
[2020-10-27 07:39] VITALS: BP 115/80; PULSE 94; RESP 14; TEMP 36.8; O2SAT 93
[2020-10-27] MEDS: Spironolactone 50 MG TAB 100 MG PO (07:40)
[2020-10-27] MEDS: Omeprazole 20 MG CAPCR PO (07:40)
[2020-10-27] MEDS: Enoxaparin 40 MG/0.4 ML SYR SC (07:41)
[2020-10-27] MEDS: Normal Saline Flush 10 ML SYR IVP (07:41)
[2020-10-27 07:44] LABS: ALT 23 U/L (16-63); AST 25 U/L (15-37); Albumin 2.9 g/dL (3.4-5.0); Alkaline Phosphatase 127 U/L (46-116); Anion Gap 0.1 mmol/L (3-11); BUN 11 mg/dL (7-18); Bilirubin, Total 1.2 mg/dL (0.2-1.0); CO2 44.9 mmol/L (21.0-32.0); CREATININE 0.8 mg/dL (0.70-1.30); Calcium 8.7 mg/dL (8.5-10.1); Chloride 94 mmol/L (98-107); Glucose 128 mg/dL (74-106); Potassium 3.6 mmol/L (3.5-5.1); Sodium 139 mmol/L (136-145); Total Protein 6.9 g/dL (6.4-8.2)
[2020-10-27] MEDS: Insulin Aspart 300 UNITS/3 ML PEN SC (07:44)
[2020-10-27 07:50] LABS: Magnesium 1.3 mg/dL (1.8-2.4); NT-proBNP 2126 pg/mL (<300)
[2020-10-27] MEDS: Folic Acid 1 MG TAB PO (08:56)
[2020-10-27] MEDS: Multivitamin TAB 1 TAB PO (08:56)
[2020-10-27] MEDS: Thiamine 100 MG TAB PO (08:56)
[2020-10-27] MEDS: MAGNESIUM SULFATE 4 GM/100 ML BAG IVPB (10:18)
[2020-10-27 11:00] VITALS: RESP 14
[2020-10-27] MEDS: Budesonide/Formoterol 160/4.5 6 GM 60 PUFF INH IH ×2 (11:04→20:18)
--- NOTE | 2020-10-27 14:38 | PGE_ITS ---
Date of Service Date of service: 10/27/20 Time of Service: 10:30 Assessment and Plan Assessment and plan (1) Respiratory failure: Start date: 10/27/20 Start time: 14:42 Status: Acute Assessment and plan: with multiple etiologies suspected to be contributing: suspected KATY: noted to desat into the 70's overnight. Refused bipap overnight. Trilogy would be likely be better for patient. Will try to qualify him. 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 Will continue another 24 hours. Improved on lasix drip down 7 kg. Edema has improved down abd now from feet to thighs as below Qualifiers: Chronicity: acute on chronic Respiratory failure complication: hypoxia Qualified Code(s): J96.21 - Acute and chronic respiratory failure with hypoxia (2) Congestive heart failure (CHF): Start date: 10/27/20 Start time: 14:44 Status: Chronic Assessment and plan: troponin has remained negative echocardiogram:no obvious segmental wall motion abnormalities, RV moderately dilated and moderately hypokinetic, PASP 46, no significant valvular disease continue diuresis. monitor I&O, daily weights. as above Qualifiers: Heart failure type: combined systolic and diastolic Heart failure chronicity: chronic Qualified Code(s): I50.42 - Chronic combined systolic (congestive) and diastolic (congestive) heart failure (3) Diabetes mellitus type 2 in obese: Start date: 10/27/20 Start time: 14:45 Status: Acute Assessment and plan: new diagnosis, Fingersticks have been under 150 A1C 7.0 diabetic diet diabetic education SSI while in hospital Start metformin on discharge along with checking glucose BID (4) Morbid obesity: Start date: 10/27/20 Start time: 14:45 Status: Chronic Assessment and plan: as above nutrition consult encourage wt loss (5) Nicotine dependence: Start date: 10/27/20 Start time: 14:46 Status: Chronic Assessment and plan: replacement while hospitalized Qualifiers: Nicotine product type: cigarettes Substance use status: unspecified nicotine-induced disorder Qualified Code(s): F17.219 - Nicotine dependence, cigarettes, with unspecified nicotine-induced disorders (6) EtOH dependence: Start date: 10/27/20 Start time: 14:46 Status: Chronic Assessment and plan: Admits to drinking 12 pack of beer daily prior to starting at the [employer] for years 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 He denies withdrawal last drink days ago he states. LFT's normal CIWA 0 Hep panel pending U/S revealing hepatomegaly Qualifiers: Substance use status: uncomplicated Qualified Code(s): F10.20 - Alcohol dependence, uncomplicated (7) DVT prophylaxis: Start date: 10/27/20 Start time: 14:47 Status: Acute Assessment and plan: enoxaparin ashanti wraps (8) Discharge planning issues: Start date: 10/27/20 Start time: 14:47 Status: Acute Assessment and plan: case management following will need to establish with pcp anticipate discharge to home with no services. Likely will require oxygen discussed with Dr Rosenberg. Subjective Subjective Patient reports: feels better Interval history since last seen: Patient feeling better, edema improving. Will continue lasix drip x 1 more night. Continue to monitor output. Renal function steady. Echo with PHTN and Right sided HF. Will try to qualify for trilogy Exam Narrative Exam Narrative: GEN: awake, alert, oriented 3. Pleasant, face flushed, morbidly obese HEAD: Normocephalic, atraumatic ENT: Mucous membranes moist, oropharynx unremarkable EYES: non-icteric, EOMI NECK: short CHEST/RESP: respirations even and unlabored, bases diminished, no wheezing CARDIOVASCULAR: RRR, no murmur, anasarca improving ABDOMEN: obese, soft, distended, +Bowel sounds EXT: Full ROM, 3+ pitting edema, chronic discoloration to bilateral lower extremity consistent with venous stasis changes Neuro: awake and oriented. Psych: mood and affect normal Objective Last Vital Signs Temp 36.8 C 10/27/20 07:39 Pulse 94 H 10/27/20 07:39 Resp 14 10/27/20 07:39 BP 115/80 10/27/20 07:39 Pulse Ox 93 10/27/20 07:39 Laboratory Results - last 24 hr 10/27/20 10/27/20 10/27/20 06:08 06:08 06:08 WBC 6.61 RBC 5.89 H Hgb 17.2 Hct 56.0 H MCV 95.1 H MCH 29.2 MCHC 30.7 L RDW 13.8 Plt Count 136 MPV 9.5 Immature Gran % 0.6 Neutrophils % 63.1 Lymphocytes % 18.0 Monocytes % 16.2 Eosinophils % 1.5 Basophils % 0.6 Nucleated RBC % 0 Absolute Neutrophils 4.17 Absolute Lymphocytes 1.19 L Absolute Monocytes 1.07 H Absolute Eosinophils 0.10 Absolute Basophils 0.04 Sodium 139 Potassium 3.6 Chloride 94 L Carbon Dioxide 44.9 H Anion Gap 0.1 L BUN 11 Creatinine 0.8 Estimated GFR/1.73 m2 >= 60.00 Glucose 128 H Calcium 8.7 Magnesium 1.3 L Total Bilirubin 1.2 H AST 25 ALT 23 Alkaline Phosphatase 127 H NT-Pro-B Natriuret Pep 2126 H Total Protein 6.9 Albumin 2.9 L
[2020-10-27 16:15] VITALS: BP 131/84; PULSE 89; RESP 19; TEMP 36.5; O2SAT 92
[2020-10-27 17:44] LABS: HCO3 50 mmol/L (22-26); pH 7.47 (7.35-7.45); pO2 45 mmHg (80-105); sO2 81 % (95-98); tCO2 42 mmol/L (23-27)
--- NOTE | 2020-10-27 17:52 | CMPROGNOTE_ITS ---
- If Service Date Differs Date of service: 10/27/20 Time of Service: 17:53 Care Management Progress Note S/O: Gustavo was sitting up in his chair when CM visited with him. He reported that per provider, he will remain at [facility] overnight for continued monitoring. He has been requiring Oxygen during this admission, which he does not have at baseline. His YODIT was initiated yesterday, but it is still not showing as 'active' currently. CM will continue to follow. A: Mo is a 50 year old admitted to [facility] 10/24/20 for CHF. P: Gustavo may require new home oxygen upon discharge; CM coordinated [employer] insurance coverage and Gustavo was signed up for [place]ODIT today; should be activated by tomorrow per [facility] report. He will follow up with the on-call PCP (Julia Oliver) and his discharge plan of care as prescribed. Gustavo will transport with friends or family. CM will continue to support Gustavo and assess for discharge planning needs.
[2020-10-27 17:53] LABS: BE > 15 mmol/L (-2-3); FIO2 21 %; Site Left Radial; pCO2 69 mmHg (35-45)
[2020-10-27 19:50] VITALS: BP 117/78; PULSE 92; RESP 14; RESP 19; TEMP 36.4; O2SAT 99
[2020-10-27] MEDS: Melatonin 3 MG TAB 6 MG PO (21:50)
[2020-10-27 23:42] VITALS: BP 145/85; PULSE 102; RESP 20; TEMP 36.1; O2SAT 100
[2020-10-28] VITALS (8 sets, daily range): BP systolic 113–127; BP diastolic 77–87; PULSE 90–95; RESP 14–20; TEMP 36.7–36.9; O2SAT 85–97
[2020-10-28] MEDS: Normal Saline Flush 10 ML SYR IVP ×4 (00:41→15:53)
[2020-10-28] MEDS: Budesonide/Formoterol 160/4.5 6 GM 60 PUFF INH IH ×2 (08:06→22:19)
[2020-10-28] MEDS: Omeprazole 20 MG CAPCR PO (08:49)
[2020-10-28] MEDS: Enoxaparin 40 MG/0.4 ML SYR SC (08:49)
[2020-10-28] MEDS: Thiamine 100 MG TAB PO (08:49)
[2020-10-28] MEDS: Multivitamin TAB 1 TAB PO (08:49)
[2020-10-28] MEDS: Folic Acid 1 MG TAB PO (08:49)
[2020-10-28 09:09] LABS: BUN 12 mg/dL (7-18); CREATININE 0.9 mg/dL (0.70-1.30); Calcium 8.5 mg/dL (8.5-10.1); Chloride 95 mmol/L (98-107); Glucose 184 mg/dL (74-106); Potassium 3.9 mmol/L (3.5-5.1); Sodium 138 mmol/L (136-145)
[2020-10-28 09:10] LABS: Anion Gap -2.00001 mmol/L (3-11); CO2 > 45.0 mmol/L (21.0-32.0)
[2020-10-28] MEDS: Furosemide 100 MG/10 ML VIAL 80 MG IVP ×2 (09:51→15:53)
--- NOTE | 2020-10-28 11:31 | CMPROGNOTE_ITS ---
- If Service Date Differs Date of service: 10/28/20 Time of Service: 11:31 Care Management Progress Note S/O: Mo was reviewed at interdisciplinary rounds. Per report, provider would like to have him evaluated for Trilogy. He will require an out patient sleep study, as well as PFT. CM called access this morning to determine if his YODIT is 'active', which it is not at this time. It should be active on Thursday, as it is a business day. If not, CM will contact Sara to resolve. CM will continue to follow. A: Mo is a 50 year old admitted to [facility] 10/24/20 for CHF. P: Gustavo may require new home oxygen upon discharge; CM coordinated [employer] insurance coverage and Gustavo was signed up for [place]ODIT today; should be activated by tomorrow per [facility] report. He will follow up with the on-call PCP (Julia Olivre) and his discharge plan of care as prescribed. uGstavo will transport with friends or family. CM will continue to support Gustavo and assess for discharge planning needs.
[2020-10-28] MEDS: Insulin Aspart 300 UNITS/3 ML PEN SC (12:01)
--- NOTE | 2020-10-28 12:46 | PGE_ITS ---
Date of Service Date of service: 10/28/20 Time of Service: 12:46 Assessment and Plan Assessment and plan (1) Respiratory failure: Start date: 10/28/20 Start time: 13:20 Status: Acute Assessment and plan: with multiple etiologies suspected to be contributing: suspected KATY: noted to desat into the 70's overnight. Wore bipap last night. Trilogy would be likely be better for patient. ABG revealing pco2 69, hco3 50, total co2 42, 02 saturation 81%, he should wear oxygen at all times He will have a PFT tomorrow. He needs oxygen at all times, suspect COPD: long history of tobacco abuse also concern for antitryspin deficiency with psorasis as well. will start symbicort CHF: duiresing well but remains hypoxic he dropped another 2 kg; IV dcd due to large improvement in edema. Will do IVP lasix at this time and transiton to oral breathing improved as well Renal function is tolerating. Edema as receded from abd now at thighs down to feet 4+ pitting edema as below Qualifiers: Chronicity: acute on chronic Respiratory failure complication: hypoxia Qualified Code(s): J96.21 - Acute and chronic respiratory failure with hypoxia (2) COPD (chronic obstructive pulmonary disease): Start date: 10/28/20 Start time: 13:20 Status: Suspected Assessment and plan: PFT tomorrow. high suspicion. Discussed what this is. How important oxygen is in the COPD and what he will need as far as follow up. To wear oxygen at all times What he is at risk for, purse lipped breathing, how humidity and heat can exacerbate attacks He stated he understood and he will need follow up with Pulmonology (3) Congestive heart failure (CHF): Start date: 10/28/20 Start time: 13:32 Status: Chronic Assessment and plan: troponin has remained negative echocardiogram:no obvious segmental wall motion abnormalities, RV moderately dilated and moderately hypokinetic, PASP 46, no significant valvular disease continue diuresis. monitor I&O, daily weights. as above Qualifiers: Heart failure type: combined systolic and diastolic Heart failure chronicity: chronic Qualified Code(s): I50.42 - Chronic combined systolic (congestive) and diastolic (congestive) heart failure (4) Diabetes mellitus type 2 in obese: Start date: 10/28/20 Start time: 13:32 Status: Acute Assessment and plan: new diagnosis, Fingersticks have been 165 today A1C 7.0 diabetic diet diabetic education SSI while in hospital Start metformin on discharge along with checking glucose BID (5) Morbid obesity: Start time: :33 Status: Chronic Assessment and plan: as above nutrition consult encourage wt loss (6) Nicotine dependence: Start date: 10/28/20 Start time: :33 Status: Chronic Assessment and plan: replacement while hospitalized Discussed importance of smoking cessation especially while on oxygen. 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 He denies withdrawal last drink days ago he states. LFT's normal CIWA 0 Hep panel pending U/S revealing hepatomegaly Qualifiers: Substance use status: uncomplicated Qualified Code(s): F10.20 - Alcohol dependence, uncomplicated (8) DVT prophylaxis: Start date: 10/28/20 Start time: 13:33 Status: Acute Assessment and plan: enoxaparin ashanti wraps (9) Discharge planning issues: Start date: 10/28/20 Start time: :33 Status: Acute Assessment and plan: case management following will need to establish with pcp, pulmonary, cardiology anticipate discharge to home with no services. will require oxygen, working on trilogy for d/c discussed with Dr Rosenberg. Subjective Subjective Patient reports: no new complaints and feels better Interval history since last seen: He is sitting up in chair. We spoke about his ABG results, having PFT's tomorrow and requiring oxygen at all times. ABG revealing pCO2 69 pH 7.47, HCO3 50 total CO2 42, he needs to wear oxygen at all times. He denies SOB, CP. Also educated on purse lipped breathing. Exam Narrative Exam Narrative: GEN: awake, alert, oriented 3. Pleasant, face flushed, morbidly obese HEAD: Normocephalic, atraumatic ENT: Mucous membranes moist, oropharynx unremarkable EYES: non-icteric, EOMI NECK: short CHEST/RESP: respirations even and unlabored, bases diminished, no wheezing CARDIOVASCULAR: RRR, no murmur, abd without edema. ABDOMEN: obese, soft, distended, +Bowel sounds EXT: Full ROM, 3+ pitting edema to thighs from feet, improving. chronic discoloration to bilateral lower extremity consistent with venous stasis changes Neuro: awake and oriented. Psych: mood and affect normal Objective Last Vital Signs Temp 36.9 C 10/28/20 08:20 Pulse 90 10/28/20 08:20 Resp 17 10/28/20 08:20 BP 113/77 10/28/20 08:20 Pulse Ox 85 L 10/28/20 08:20 Laboratory Results - last 24 hr 10/27/20 10/28/20 10/28/20 17:41 08:50 Unknown ABG Sample Site Left radial Cancelled ABG pH 7.47 H Cancelled ABG pCO2 69 H* Cancelled ABG pO2 45 L Cancelled ABG HCO3 50 H Cancelled ABG Total CO2 42 H Cancelled ABG O2 Saturation 81 L Cancelled ABG Base Excess > 15 H Cancelled Oxygen Liter Flow Cancelled FiO2 21 Cancelled Sodium 138 Potassium 3.9 Chloride 95 L Carbon Dioxide > 45.0 H Anion Gap -2.89013 L BUN 12 Creatinine 0.9 Estimated GFR/1.73 m2 >= 60.00 Glucose 184 H Calcium 8.5
[2020-10-28] MEDS: Melatonin 3 MG TAB 6 MG PO (22:19)
[2020-10-29] VITALS (7 sets, daily range): BP systolic 103–121; BP diastolic 62–81; PULSE 90–111; RESP 18–20; TEMP 36.5–37.1; O2SAT 80–96
[2020-10-29 07:00] LABS: Abs Immature Grans 0.02 10^3/uL (0.0-0.06); Absolute Basophil Count 0.04 10^3/uL (0.0-0.2); Absolute Eosinophil Count 0.24 10^3/uL (0.0-0.7); Absolute Lymphocyte Count 1.37 10^3/uL (1.2-3.4); Absolute Monocyte Count 0.93 10^3/uL (0.1-0.8); Absolute Neutrophil Count 3.69 10^3/uL (1.2-6.7); Basophils % 0.6; Eosinophils % 3.8; HGB 18.2 g/dL (13.5-17.5); Immature Grans % 0.3; Lymphocytes % 21.8; MCH 29.1 pg (27.0-33.0); MCHC 31.1 % (32.0-36.0); MCV 93.6 fL (80-95); MPV 8.9 fL (8.0-11.0); Monocytes % 14.8; Neutrophils % 58.7; Nucleated RBC 0 %; Platelet Count 123 10^3/uL (130-400); RDW 14.1 % (11.8-14.1); RDW-SD 48.5 fL; WBC 6.29 10^3/uL (4.4-10.8)
[2020-10-29 07:08] LABS: Anion Gap 0.9 mmol/L (3-11); BUN 21 mg/dL (7-18); CO2 43.1 mmol/L (21.0-32.0); CREATININE 0.9 mg/dL (0.70-1.30); Calcium 9.1 mg/dL (8.5-10.1); Chloride 95 mmol/L (98-107); Glucose 145 mg/dL (74-106); Potassium 3.6 mmol/L (3.5-5.1); Sodium 139 mmol/L (136-145)
[2020-10-29 07:22] LABS: HCT 58.5 % (40.0-50.0); RBC 6.25 10^6/uL (4.36-5.78)
[2020-10-29] MEDS: Budesonide/Formoterol 160/4.5 6 GM 60 PUFF INH IH ×2 (07:55→21:11)
[2020-10-29] MEDS: Furosemide 100 MG/10 ML VIAL 80 MG IVP (07:59)
[2020-10-29] MEDS: Enoxaparin 40 MG/0.4 ML SYR SC (07:59)
[2020-10-29] MEDS: Thiamine 100 MG TAB PO (08:00)
[2020-10-29] MEDS: Folic Acid 1 MG TAB PO (08:00)
[2020-10-29] MEDS: Multivitamin TAB 1 TAB PO (08:00)
[2020-10-29] MEDS: Omeprazole 20 MG CAPCR PO (08:01)
[2020-10-29] MEDS: Normal Saline Flush 10 ML SYR IVP ×2 (08:02→15:51)
[2020-10-29 09:09] LABS: Iron 107 ug/dL (65-175); Total Iron Binding Capacity 304 ug/dL (250-450); Transferrin Sat 35 % (20-55)
[2020-10-29 09:23] LABS: Ferritin 41 ng/mL (26-388)
[2020-10-29 09:37] LABS: Vitamin B12 448 pg/mL (193-986)
[2020-10-29 10:33] LABS: Hepatitis A Antibody IgM Negative (Negative); Hepatitis B Core Antibody Negative (Negative); Hepatitis B surface Ag Negative (Negative); Hepatitis C Ab w Rflx HCV PCR Negative (Negative)
[2020-10-29 10:34] LABS: HBs Antibody, Qual Negative (See Note); HBs Antibody, Quant <3.1 mIU/mL (See Note); Hepatitis B Core Antibody Negative (Negative); Hepatitis B surface Ag Negative (Negative); Hepatitis C Ab w Rflx HCV PCR Negative (Negative)
--- NOTE | 2020-10-29 11:15 | PDOC.CMPRO ---
Care Management Progress Note S/O: CM sent msg task to [employer] to inquire as to YODIT status. CM called [employer] who reported Gustavo was still showing ineligible. CM called [facility] and left VM requesting support. CM recieved response from [facility] Duncan that Greta was working on it. Greta called and reported she had requested state expedite YODIT shared she anticipates YODIT could be available by the end of the day. CM continues to follow. A: Mo is a 50 year old admitted to [facility] 10/24/20 for CHF. P: Gustavo will require new home oxygen upon discharge; CM coordinated [employer] insurance navigation for coverage on 10/19/20; continuing to await notification that insurance is approved. Gustavo will follow up with the on-call PCP/ (Julia Oliver) and his discharge plan of care as prescribed including out patient sleep study, as well as PFT. CM continues to follow.
[2020-10-29] MEDS: Potassium Chloride 20 MEQ TABCR 40 MEQ PO (11:29)
[2020-10-29] MEDS: Insulin Aspart 300 UNITS/3 ML PEN SC (11:29)
--- NOTE | 2020-10-29 12:43 | W.PM.PROGNOT ---
Documented by User: Norma Wagner NP 10/29/20 16:42 Date of Service Date of service: 10/29/20 Time of Service: 12:43 Assessment and Plan Assessment and plan (1) Respiratory failure: Start date: 10/29/20 Start time: 12:43 Status: Acute Assessment and plan: Severely improving, no SOB down 26 kg. Feeling better with multiple etiologies suspected to be contributing: suspected KATY: noted to desat into the 70's overnight. Wore bipap last night. Trilogy would be likely be better for patient. ABG revealing pco2 69, hco3 50, total co2 42, 02 saturation 81%, he should wear oxygen at all times PFT today per RT he failed. He needs oxygen at all times 3 L after ambulatory pulse ox even when sitting. history of tobacco abuse also concern for antitryspin deficiency with psorasis as well. on symbicort CHF: duiresing well but remains hypoxic he dropped another 2 kg; IV dcd due to large improvement in edema. Will do IVP lasix at this time and transition to oral, breathing improved as well Renal function is tolerating. Edema as receded from abd now at knees down to feet 3+ pitting edema as below Qualifiers: Chronicity: acute on chronic Respiratory failure complication: hypoxia Qualified Code(s): J96.21 - Acute and chronic respiratory failure with hypoxia (2) COPD (chronic obstructive pulmonary disease): Start date: 10/29/20 Start time: 16:38 Status: Suspected Assessment and plan: PFT failed per RT. Patient requires oxygen 3 liters at all times RT working on getting him a home unit Astril Possible discharge tomorrow with oxygn can be set up not exacerbated no wheezing or SOB (3) Congestive heart failure (CHF): Start date: 10/29/20 Start time: 16:41 Status: Chronic Assessment and plan: troponin has remained negative echocardiogram:no obvious segmental wall motion abnormalities, RV moderately dilated and moderately hypokinetic, PASP 46, no significant valvular disease continue diuresis. monitor I&O, daily weights. as above Qualifiers: Heart failure chronicity: chronic Heart failure type: combined systolic and diastolic Qualified Code(s): I50.42 - Chronic combined systolic (congestive) and diastolic (congestive) heart failure (4) Diabetes mellitus type 2 in obese: Start date: 10/29/20 Start time: 16:41 Status: Acute Assessment and plan: new diagnosis, Fingersticks have been 165 today A1C 7.0 diabetic diet diabetic education SSI while in hospital Start metformin on discharge along with checking glucose BID he will need glucometer, lancets and strips (5) Morbid obesity: Start date: 10/29/20 Start time: 16:41 Status: Chronic Assessment and plan: as above nutrition consult encourage wt loss (6) Nicotine dependence: Start date: 10/29/20 Start time: 16:41 Status: Chronic Assessment and plan: replacement while hospitalized Discussed importance of smoking cessation especially while on oxygen. 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 He denies withdrawal last drink days ago he states. LFT's normal CIWA 0 Hep panel pending U/S revealing hepatomegaly Qualifiers: Substance use status: uncomplicated Qualified Code(s): F10.20 - Alcohol dependence, uncomplicated (8) DVT prophylaxis: Start date: 10/29/20 Start time: 16:42 Status: Acute Assessment and plan: enoxaparin ashanti wraps (9) Discharge planning issues: Start date: 10/29/20 Start time: 16:42 Status: Acute Assessment and plan: case management following will need to establish with pcp, pulmonary, cardiology anticipate discharge to home with no services. will require oxygen, working on trilogy for d/c discussed with Dr Rosenberg. Subjective Subjective Patient reports: feels better Interval history since last seen: Patient is down from 144 kg to 122 kg. He feels much better. Edema has receded to calfs. He is on IVP bid. He had his PFT today, RT called to say that he did not do well and he failed. Spoke to patient about this. He would qualify for the Astral. RT to work on qulification of this. Ambulatory pulse ox reveals requiring 3 L at all time especially when resting. Overall feeling better. Edema has improved. Down from abd and thighs to knees and calves. Decreased IV lasix, transition to PO in am. Possible discharge in am if oxygen can be set up. He will need PCP, pulmonology and cardiology on discharge. Exam Narrative Exam Narrative: GEN: awake, alert, oriented 3. Pleasant, face flushed, morbidly obese,overall improved. Breathing improved HEAD: Normocephalic, atraumatic ENT: Mucous membranes moist, oropharynx unremarkable EYES: non-icteric, EOMI NECK: short CHEST/RESP: respirations even and unlabored, bases diminished, no wheezing, requiring oxygen 3 L at all time. CARDIOVASCULAR: RRR, no murmur, abd without edema. ABDOMEN: obese, soft, distended, +Bowel sounds EXT: Full ROM, 3+ pitting edema from knees to feet, improving. chronic discoloration to bilateral lower extremity consistent with venous stasis changes Neuro: awake and oriented. Psych: mood and affect normal Objective Last Vital Signs Temp 36.5 C 10/29/20 07:14 Pulse 91 H 10/29/20 07:14 Resp 20 10/29/20 07:14 BP 116/74 10/29/20 07:14 Pulse Ox 89 L 10/29/20 07:14 Laboratory Results - last 24 hr 10/27/20 10/27/20 10/29/20 06:08 06:08 06:25 WBC RBC Hgb Hct MCV MCH MCHC RDW Plt Count MPV Immature Gran % Neutrophils % Lymphocytes % Monocytes % Eosinophils % Basophils % Nucleated RBC % Absolute Neutrophils Absolute Lymphocytes Absolute Monocytes Absolute Eosinophils Absolute Basophils Sodium 139 Potassium 3.6 Chloride 95 L Carbon Dioxide 43.1 H Anion Gap 0.9 L BUN 21 H D Creatinine 0.9 Estimated GFR/1.73 m2 >= 60.00 Glucose 145 H Calcium 9.1 Iron TIBC Transferrin % Sat Ferritin Vitamin B12 Hepatitis A IgM Ab Negative Hep Bs Antigen Negative Negative Hep Bs Antibody Negative Hep Bs Antibody, Quant <3.1 Hep B Core Total Ab Negative Negative Hepatitis C Antibody Negative Negative 10/29/20 10/29/20 10/29/20 06:25 06:45 06:45 WBC 6.29 RBC 6.25 H Hgb 18.2 H Hct 58.5 H* MCV 93.6 MCH 29.1 MCHC 31.1 L RDW 14.1 Plt Count 123 L MPV 8.9 Immature Gran % 0.3 Neutrophils % 58.7 Lymphocytes % 21.8 Monocytes % 14.8 Eosinophils % 3.8 Basophils % 0.6 Nucleated RBC % 0 Absolute Neutrophils 3.69 Absolute Lymphocytes 1.37 Absolute Monocytes 0.93 H Absolute Eosinophils 0.24 Absolute Basophils 0.04 Sodium Potassium Chloride Carbon Dioxide Anion Gap BUN Creatinine Estimated GFR/1.73 m2 Glucose Calcium Iron 107 TIBC 304 Transferrin % Sat 35 Ferritin 41 Vitamin B12 Hepatitis A IgM Ab Hep Bs Antigen Hep Bs Antibody Hep Bs Antibody, Quant Hep B Core Total Ab Hepatitis C Antibody 10/29/20 06:45 WBC RBC Hgb Hct MCV MCH MCHC RDW Plt Count MPV Immature Gran % Neutrophils % Lymphocytes % Monocytes % Eosinophils % Basophils % Nucleated RBC % Absolute Neutrophils Absolute Lymphocytes Absolute Monocytes Absolute Eosinophils Absolute Basophils Sodium Potassium Chloride Carbon Dioxide Anion Gap BUN Creatinine Estimated GFR/1.73 m2 Glucose Calcium Iron TIBC Transferrin % Sat Ferritin Vitamin B12 448 Hepatitis A IgM Ab Hep Bs Antigen Hep Bs Antibody Hep Bs Antibody, Quant Hep B Core Total Ab Hepatitis C Antibody Documented by User: Frances Rosenberg MD 10/30/20 13:17
--- NOTE | 2020-10-29 14:37 | W.INDIABCONS ---
Date of service: 10/29/20 Time of Service: 14:37 Diabetes Inpatient Consult DESCRIPTION/ASSESSMENT: Met with Gustavo during lunch. He was recently dx with DM2 with A1C of 7% while hospitalized for COPD, respiratory failure, CHF with long standing hx of tobacco and ETOH abuse. BMI indicates morbid obesity. Will be d/c on metformin. INTERVENTION: Provided education on DM including Hyper/hypoglycemia s/s with action plan for each scenario. Definition and types of CHO with examples, CHO counting, DASH diet materials, DM meal planning and label reading literature. Provided a blood sugar and food record chart and materials to reiterate CHO counting techniques. Reviewed desirable BG levels with patient with food choices and portions for optimal outcomes. Provided contact information for this RD and encouraged to call with any f/u questions r/t to DM self management. CDM from kitchen has been helping to count CHO's and achieve intake of ~65g/CHO per meal period. Provided contact information and encouraged him to make appt. once outpatient. PLAN: continue current meal plan will continue to follow. Time Spent in Nutritional Counseling and Treatment: 15
[2020-10-29] MEDS: Furosemide 40 MG/4 ML VIAL IVP (15:52)
--- NOTE | 2020-10-29 16:56 | RESPIRATORY ---
Pt has not been on home oxygen but is requiring 3L at rest and with ambulation. His abg qualified him for NIV thru [facility] and the paperwork is in progress. He had bedside spirometry done 10/29. He will need to be set up with oxygen on discharge and follow up with [facility].
--- NOTE | 2020-10-29 19:55 | W.PFT ---
Date of service: 10/29/20 Time of Service: 09:28 Pulmonary Function Test Result Interpretation Spirometry: No evidence of obstructive airways disease. No bronchodilator testing was carried out Impression No evidence of obstructive airways disease on this simple spirometry. No bronchodilator testing was carried out. The pattern of findings on the spirometry may be of underlying restriction, either from restrictive lung disease or from restrictive physiology from chest wall restriction. Clinical Correlation therefore is recommended.
[2020-10-29] MEDS: Melatonin 3 MG TAB 6 MG PO (21:11)
[2020-10-30 07:15] VITALS: BP 125/75; PULSE 94; RESP 20; TEMP 36.4; O2SAT 91
[2020-10-30 07:17] LABS: Anion Gap 0.1 mmol/L (3-11); BUN 21 mg/dL (7-18); CO2 42.9 mmol/L (21.0-32.0); CREATININE 0.9 mg/dL (0.70-1.30); Calcium 9.1 mg/dL (8.5-10.1); Chloride 97 mmol/L (98-107); Glucose 148 mg/dL (74-106); Potassium 4.2 mmol/L (3.5-5.1); Sodium 140 mmol/L (136-145)
[2020-10-30 08:30] VITALS: O2SAT 90
[2020-10-30] MEDS: Omeprazole 20 MG CAPCR PO (08:33)
[2020-10-30] MEDS: Furosemide 40 MG/4 ML VIAL IVP (08:33)
[2020-10-30] MEDS: Enoxaparin 40 MG/0.4 ML SYR SC (08:33)
[2020-10-30] MEDS: Normal Saline Flush 10 ML SYR IVP (08:34)
--- NOTE | 2020-10-30 08:34 | CCONE_ITS ---
Date of service: 10/30/20 Time of Service: 08:34 Assessment and Plan Assessment and plan (1) COPD (chronic obstructive pulmonary disease): Status: Suspected (2) Respiratory failure: Status: Acute Qualifiers: Chronicity: acute on chronic Respiratory failure complication: hypoxia Qualified Code(s): J96.21 - Acute and chronic respiratory failure with hypoxia History of Present Illness History of Present Illness Chief Complaint: Acute on chronic respiratory failure Narrative: Cardiac evaluation was requested in this 50-year-old man who was mated to the hospital recently with acute on chronic respiratory failure, and right-sided heart failure. He has obesity and hypoventilation. He has been found to have significant pulmonary issues and is suspected to have sleep apnea The chart was reviewed The patient was not interviewed or examined The case was discussed with Dr. Rosenberg. Her concern was whether or not the patient should have a right heart catheterization I see no indication to proceed with a right heart cath, as it is not likely to change house attendant He should be vigorously treated for sleep apnea. Weight loss is advised. Diuresis is indicated for edema, though this can be notoriously difficult to manage. I have no other specific cardiac recommendations at this time Consults Consult date: 10/30/20 Requesting physician: Frances Rosenberg [facility] Medical History Alcohol abuse Surgical History History of tonsillectomy Family History (Updated 10/24/20 @ 11:03 by Tr Ruiz MD) Mother Heart disease Social History Smoking/Tobacco Use Status: Current every day Tobacco Type: cigarettes Smoking risk assessment performed?: Yes Alcohol Intake: current Alcohol Intake frequency: 3 or more drinks per day Alcohol type: beer Drug use: Never Substance use type: does not use Do you feel safe at home: Yes Do you feel safe in your relationship?: Yes Results Last Vital Signs Temp 36.5 C 10/29/20 23:35 Pulse 92 H 10/29/20 23:35 Resp 18 10/29/20 23:35 BP 103/62 10/29/20 23:35 Pulse Ox 96 10/29/20 23:35 Labs Result diagrams: 10/29/20 06:25 10/30/20 06:30 Labs: Laboratory Results - last 24 hr 10/27/20 10/27/20 10/29/20 06:08 06:08 06:45 Sodium Potassium Chloride Carbon Dioxide Anion Gap BUN Creatinine Estimated GFR/1.73 m2 Glucose Calcium Iron 107 TIBC 304 Transferrin % Sat 35 Ferritin Vitamin B12 Hepatitis A IgM Ab Negative Hep Bs Antigen Negative Negative Hep Bs Antibody Negative Hep Bs Antibody, Quant <3.1 Hep B Core Total Ab Negative Negative Hepatitis C Antibody Negative Negative 10/29/20 10/29/20 10/30/20 06:45 06:45 06:30 Sodium 140 Potassium 4.2 Chloride 97 L Carbon Dioxide 42.9 H Anion Gap 0.1 L BUN 21 H Creatinine 0.9 Estimated GFR/1.73 m2 >= 60.00 Glucose 148 H Calcium 9.1 Iron TIBC Transferrin % Sat Ferritin 41 Vitamin B12 448 Hepatitis A IgM Ab Hep Bs Antigen Hep Bs Antibody Hep Bs Antibody, Quant Hep B Core Total Ab Hepatitis C Antibody
[2020-10-30] MEDS: Budesonide/Formoterol 160/4.5 6 GM 60 PUFF INH IH ×2 (08:37→19:31)
[2020-10-30] MEDS: Insulin Aspart 300 UNITS/3 ML PEN SC (08:42)
[2020-10-30 08:56] LABS: Alpha 1 Antitrypsin,Serum 200 mg/dL (90-200)
[2020-10-30 09:30] LABS: Transferrin 265 mg/dL (201-352)
[2020-10-30 10:49] VITALS: PULSE 102; PULSE 97; RESP 16; O2SAT 83; O2SAT 90
--- NOTE | 2020-10-30 14:04 | PGE_ITS ---
Date of Service Date of service: 10/30/20 Time of Service: 14:04 Assessment and Plan Assessment and plan (1) Chronic respiratory failure with hypoxia and hypercapnia: Status: Chronic Assessment and plan: The patient is felt strongly to benefit from Astral machine and will require O2 on discharge. Both are being set up by respiratory. Continue BiPAP while in the hospital. (2) Cor pulmonale: Status: Chronic Assessment and plan: Continue diuresis. Transition to PO lasix. Monitor I/os, daily weights. Bipap while in house/Astral on discharge (3) Pulmonary hypertension: Status: Acute Assessment and plan: As above (4) COPD (chronic obstructive pulmonary disease): Status: Chronic Assessment and plan: Add spiriva and prn albuterol to symbicort. Does not appear to be in acute exacerbation. (5) Obesity hypoventilation syndrome: Status: Chronic Assessment and plan: New diagnosis, but chronic condition. Astral strongly recommended. BiPAP while in-house. (6) EtOH dependence: Status: Chronic Assessment and plan: Add thiamine and multivitamins. Not in acute withdrawal. Qualifiers: Substance use status: uncomplicated Qualified Code(s): F10.20 - Alcohol dependence, uncomplicated (7) Diabetes mellitus type 2 in obese: Status: Acute Assessment and plan: New diagnosis. Would benefit from metformin on discharge. (8) Nicotine dependence: Status: Chronic Assessment and plan: Nicotrol inhaler Qualifiers: Nicotine product type: cigarettes Substance use status: unspecified nicotine-induced disorder Qualified Code(s): F17.219 - Nicotine dependence, cig arettes, with unspecified nicotine-induced disorders (9) Polycythemia secondary to hypoxia: Status: Suspected Assessment and plan: Treat hypoxia as above. Polycythemia workup pending. (10) Morbid obesity: Status: Chronic Assessment and plan: BMI 42.0. We spoke about weight loss. (11) DVT prophylaxis: Status: Acute Assessment and plan: SC lovenox. (12) Discharge planning issues: Status: Acute Assessment and plan: Full code Continues to require hospitalization. Was strongly advised to stay and not leave AMA. Risks of leaving AMA were explained, including but not limited to if he went home without appropriate respiratory equipment. Subjective Subjective Interval history since last seen: Mr Rayo feels like he is a prisoner in his room and would like to go home today. I explained to him that his oxygen and Astral machine have not been approved/set up yet, and that he is still on IV lasix and really should be switched to PO before he goes. He states he is anxious and that's why his room is driving him crazy. At home, he would treat his anxiety with beer. Exam Narrative Exam Narrative: General: Pleasant obese male on O2, sitting comfortably in a chair, no dyspnea/tachypnea, anxious, A&Ox3 HEENT: EOMI, MMM Heart: RRR, no m/r/g Lungs: CTAB Abdomen: soft, nontender, nondisteded Extremities: 2+ BLE edema in TEDs Objective Last Vital Signs Temp 36.4 C L 10/30/20 07:15 Pulse 94 H 10/30/20 07:15 Resp 20 10/30/20 07:15 BP 125/75 10/30/20 07:15 Pulse Ox 90 L 10/30/20 08:30 Laboratory Results - last 24 hr 10/29/20 10/29/20 10/29/20 06:25 06:25 09:00 Sodium Potassium Chloride Carbon Dioxide Anion Gap BUN Creatinine Estimated GFR/1.73 m2 Glucose Calcium Transferrin 265 [id number] 200 Path Cons Comment 10/30/20 06:30 Sodium 140 Potassium 4.2 Chloride 97 L Carbon Dioxide 42.9 H Anion Gap 0.1 L BUN 21 H Creatinine 0.9 Estimated GFR/1.73 m2 >= 60.00 Glucose 148 H Calcium 9.1 Transferrin [id number] Path Cons Comment
[2020-10-30] MEDS: Tiotropium Bromide-Respimat 10 PUFF INH 2 PUFF IH (14:39)
[2020-10-30] MEDS: LORazepam 0.5 MG TAB PO (14:57)
[2020-10-30] MEDS: Thiamine 100 MG TAB PO (14:57)
[2020-10-30 15:17] VITALS: BP 123/84; PULSE 88; RESP 17; TEMP 36.2; O2SAT 94
[2020-10-30] MEDS: Furosemide 40 MG TAB PO (15:30)
--- NOTE | 2020-10-30 17:53 | CMPROGNOTE_ITS ---
Care Management Progress Note S/O: Mo continues to be closely monitored and treated; per MD, he remains acute at this time. No change to overall plan. CM continues to follow. A: Mo is a 50 year old admitted to [facility] 10/24/20 for CHF. P: Gustavo will require new home oxygen upon discharge; CM coordinated [employer] insurance navigation-YODIT now active. Gustavo will follow up PCP-Julia Oliver and his discharge plan of care as prescribed including out patient sleep study, as well as PFT. CM continues to follow.
[2020-10-30] MEDS: Melatonin 3 MG TAB 6 MG PO (21:22)
[2020-10-30 23:12] VITALS: BP 117/73; PULSE 99; RESP 18; TEMP 36.6; O2SAT 97
[2020-10-31 06:50] LABS: Abs Immature Grans 0.02 10^3/uL (0.0-0.06); Absolute Basophil Count 0.03 10^3/uL (0.0-0.2); Absolute Eosinophil Count 0.22 10^3/uL (0.0-0.7); Absolute Lymphocyte Count 1.33 10^3/uL (1.2-3.4); Absolute Monocyte Count 0.91 10^3/uL (0.1-0.8); Absolute Neutrophil Count 3.38 10^3/uL (1.2-6.7); Basophils % 0.5; Eosinophils % 3.7; HGB 18.1 g/dL (13.5-17.5); Immature Grans % 0.3; Lymphocytes % 22.6; MCH 28.9 pg (27.0-33.0); MCHC 30.7 % (32.0-36.0); MCV 94.1 fL (80-95); MPV 10.1 fL (8.0-11.0); Monocytes % 15.4; Neutrophils % 57.5; Nucleated RBC 0 %; Platelet Count 114 10^3/uL (130-400); RDW 14.1 % (11.8-14.1); RDW-SD 48.9 fL; WBC 5.89 10^3/uL (4.4-10.8)
[2020-10-31 06:55] LABS: HCT 58.9 % (40.0-50.0)
[2020-10-31 06:56] LABS: RBC 6.26 10^6/uL (4.36-5.78)
[2020-10-31 06:59] LABS: Anion Gap 2.4 mmol/L (3-11); BUN 19 mg/dL (7-18); CO2 39.6 mmol/L (21.0-32.0); CREATININE 0.8 mg/dL (0.70-1.30); Calcium 9.1 mg/dL (8.5-10.1); Chloride 98 mmol/L (98-107); Glucose 151 mg/dL (74-106); Magnesium 1.9 mg/dL (1.8-2.4); Potassium 4.3 mmol/L (3.5-5.1); Sodium 140 mmol/L (136-145)
[2020-10-31 07:50] VITALS: BP 116/82; PULSE 89; RESP 21; TEMP 36.4; O2SAT 93
[2020-10-31] MEDS: Multivitamin w/Minerals TAB 1 TAB PO (07:51)
[2020-10-31] MEDS: Omeprazole 20 MG CAPCR PO (07:51)
[2020-10-31] MEDS: Thiamine 100 MG TAB PO (07:51)
[2020-10-31] MEDS: Furosemide 40 MG TAB PO (07:51)
[2020-10-31] MEDS: Enoxaparin 40 MG/0.4 ML SYR SC (07:51)
[2020-10-31] MEDS: Normal Saline Flush 10 ML SYR IVP (07:52)
[2020-10-31] MEDS: Insulin Aspart 300 UNITS/3 ML PEN SC (07:56)
--- NOTE | 2020-10-31 08:05 | CHAPLAIN ---
I had a brief visit with Mo yesterday. He said he was expecting to be discharged.
[2020-10-31] MEDS: Tiotropium Bromide-Respimat 10 PUFF INH 2 PUFF IH (08:24)
[2020-10-31] MEDS: Budesonide/Formoterol 160/4.5 6 GM 60 PUFF INH IH (08:24)
--- NOTE | 2020-10-31 10:13 | CMDISCH_ITS ---
LACE Index Scoring Tool - Questions: Length of Stay (in days): 7 - 13 Acuity (Admit via E.D.?): Yes Comorbidities: Diabetes w/o Complication, Congestive Heart Failure, Chronic Pulmonary Disease E.D. Visits: 1 - Answers: Total Score: 14 Risk of Readmission: High Risk Care Management Discharge Reason for Hospitalization: CHF Discharge Plan: Gustavo will require new home oxygen upon discharge; CM coordinated [employer] insurance navigation-YODIT now active. RT is coordinating Astra machine as well. Gustavo will follow up with PCP-Julia Oliver and his discharge plan of care as prescribed including out patient sleep study, diabetic education, as well as PFT. CM faxed referral to [facility] Pulmonology at MD request as well. New orders for VNA RN through [facility] were communicated with Surinder ONEILL who reported [facility] was not willing to follow VNA orders until after meeting with Gustavo on 11/14/20, so services would not begin until then. CM notified , who reported she would inquire with PIPE LAYER HELPER re: following orders in the interim. Gustavo will transport via private vehicle with family. Patient/Family Education Needs: Review discharge instructions, discuss Ask Me Three. Services Needed at Discharge: Home Health Care Services, Oxygen Therapy (O2 and Astra coordinated by RT )
--- NOTE | 2020-10-31 10:49 | W.PM.DS.N ---
Date of service: 10/31/20 Time of Service: 10:49 DS: Diagnosis Discharge Diagnosis (1) Chronic respiratory failure with hypoxia and hypercapnia: Status: Chronic (2) Cor pulmonale: Status: Chronic (3) Pulmonary hypertension: Status: Acute (4) Restrictive lung disease: Status: Acute (5) Obesity hypoventilation syndrome: Status: Chronic (6) Polycythemia secondary to hypoxia: Status: Suspected (7) Diabetes mellitus type 2 in obese: Status: Acute (8) EtOH dependence: Status: Chronic (9) Nicotine dependence: Status: Chronic (10) Thrombocytopenia: Status: Chronic (11) Anxiety: Status: Chronic (12) Hypomagnesemia: Status: Resolved (13) B12 deficiency: Status: Acute (14) Obesity, morbid, BMI 40.0-49.9: Status: Chronic (15) COVID-19 ruled out by laboratory testing: Status: Ruled-out (16) COPD (chronic obstructive pulmonary disease): Status: Ruled-out Discharge Plan Disposition Patient Disposition: HOME W/HOME HEALTH SERVICE Condition: Stable Discharge Details Reason For Visit: CHF Admit Date/Time: 10/24/20 13:02 Admit Provider: Fran Hsu Attending Provider: Fran Hsu Primary Care Provider: None,None Hospital Course Hospital Course: Mr Rayo is a 50 year old male with PMHx of alcohol abuse, tobacco abuse, and obesity with BMI of 41.6 kg/m2 who was admitted to [facility] hosptialist service on 10/24/20 with acute CHF and hypoxia, desaturating to 84% on room air, requiring 4L of O2 by NC. PE was ruled out with a negative CTA. The patient was treated with intravenous diuretics (required lasix infusion), BiPAP as obesity hypoventilation syndrome was strongly suspected. Additionally, the patient's echo revealed pulmonary hypertension with RVSP of 46 mm Hg and flattening of interventricular septum, consistent with of RV failure/cor pulmonale. The patient also clinically responded to bronchodilators and, given hx of smoking, PFTs were obtained due to concerns for COPD. PFTs were read as restrictive lung disease rather than obstructive disease, though no bronchodilator testing was performed at this time. The patient was also found to have a new diagnosis of diabetes with A1C of 7.0. For this, he met with agricultural extension educator and is being started on metformin on discharge. He will need to follow up with diabetes education on discharge as well. The patient is doing remarkably better after diuresis and BiPAP therapy. His ABG in what is thought to be he euvolemic and baseline states is revealing pCO2 of 69 and O2 sat of 81% on RA. Based on this ABG and the patient's overall clinical picture, the patient has chronic hypoxic hypercapnic respiratory failure and, with underlying restrictive lung disease, he is felt to benefit from ASTRAL non-invasive ventilator on discharge. He does qualify for 3L of O2 at rest and with activity based on ambulatory pulse ox testing. The patient is being discharged home today with referrals to [facility] pulmonology, community health educator and his new PCP. He is instructed to stop smoking, decrease or abstain from alcohol, to follow a carb consistent low sodium diet. He did not have any signs of alcohol withdrawal on this admission. He is instructed not to smoke if wearing oxygen. He is instructed to attempt to lose weight. The patient did share with me that at home he frequently drinks anxiety as a way to treat his anxiety. We recommend that PCP consider anxiety treatment for this patient once his care is established. The patient is medically stable for discharge home today with new home oxygen/ASTRAL and above follow ups. He would also benefit form home health nursing on discharge. Care for patient as well as completion of his discharge summary on day of discharge took 60 minutes. Home Meds and New Rx's Prescriptions: New albuterol sulfate [Ventolin HFA] 90 mcg/actuation Hfa Aerosol Inhaler 2 puff inhalation Q4H PRN PRNQty: 8.5 RF: 0 furosemide 40 mg Tablet 40 mg PO BID@0830,1600 Qty: 28 RF: 0 thiamine mononitrate (vit B1) [Vitamin B-1 (mononitrate)] 100 mg Tablet 100 mg PO DAILY Qty: 30 RF: 0 cyanocobalamin (vitamin B-12) 1,000 mcg tablet 1,000 mcg PO DAILY Qty: 30 RF: 0 multivitamin Tablet 1 tab PO DAILY Qty: 30 RF: 0 melatonin 5 mg capsule 5 mg PO HS Qty: 30 RF: 0 metformin 500 mg tablet 500 mg PO BID Qty: 60 RF: 0 (DME) blood-glucose meter Misc See Rx Instructions .ROUTE .MEDSUPPLY Qty: 1 RF: 0 (DME) blood sugar diagnostic Strip See Rx Instructions .ROUTE .MEDSUPPLY Qty: 30 RF: 0 Discharge Instructions Instructions: Cor Pulmonale (DC), How to Stop Smoking (DC), Type 2 Diabetes in Adults: New Diagnosis (DC), Using Oxygen at Home (DC), Meal Planning with Diabetes Exchanges (DC), Abuse of Alcohol (DC), Pulmonary Arterial Hypertension (DC), Low-Sodium Diet (DC), Chronic Respiratory Failure (DC), Type 2 Diabetes Management for Adults (DC) Additional Instructions: Follow a low sodium carb consistent diet. Take your new medications as prescribed. Weigh yourself daily. If you notice your weight going up by more than 3 lbs in 3 days, this is likely due to fluid retention and you should call your PCP for further instructions. Wear IAN stockings. Always use ASTRAL when sleeping or napping. At all other times use 3L of oxygen. You must not smoke while wearing oxygen and should attempt to quit entirely. Decrease or stop drinking alcohol. Check your blood sugar once daily first thing in the morning before you have anything to drink or eat. Record your fasting blood sugars and show your log to the PCP. Return to the hospital with any fever, bleeding, chest pain, shortness of breath, or worsening swelling in your legs despite interventions by your PCP. Follow up with your new PCP, Dr Oliver, as scheduled. Follow up with [facility] pulmnology. Follow up with agricultural extension educator. Stand Alone Forms: Nursing Discharge Form Referrals: PULMONOLOGY,[facility] [OTHER] - (Office will call with appointment. Please follow-up with office [phone] option 2. ) Kacy Fisher [DISTRIBUTION COLLECTION OPERATOR] - Julia Oliver MD [ [facility] STAFF PHYSICIAN] - 11/14/20 8:45 am Activity:: Activity as Tolerated Equipment/Supplies:: 3L of O2 by NC Diet:: carb consistent low sodium Discharge Orders Discharge Orders: Discharge Order (Routine); Ordered 10/31/20 Ordered By: Frances Rosenberg DS: Summary Time Spent with Patient providing and/or coordinating discharge services: Greater than 30 minutes Status at Discharge Functional status at discharge: independent ambulation Overall status at discharge: patient is back to baseline Mental Status: mental status grossly normal Speech and Movement: speech and movement normal Mood: anxious mood Affect: normal affect Exam Narrative Exam Narrative: General: Pleasant obese male on O2, sitting comfortably in a chair, no dyspnea/tachypnea, anxious, A&Ox3 HEENT: EOMI, MMM Heart: RRR, no m/r/g Lungs: CTAB Abdomen: soft, nontender, nondisteded Extremities: 2+ BLE edema in TEDs Psych Mental Status: mental status grossly normal Speech and Movement: speech and movement normal Mood: anxious mood Affect: normal affect DS: Data Vitals/I&O Vitals and I&O: Vital Signs Temperature 36.6 C 10/30/20 23:12 Temperature Source Tympanic 10/30/20 23:12 Pulse 99 H 10/30/20 23:12 Pulse Rhythm Regular 10/31/20 07:55 Pulse 102 H 10/24/20 14:10 Respiratory Rate 18 10/30/20 23:12 Respiratory Effort 10/31/20 07:55 Respiratory Depth Normal 10/31/20 07:55 Respiratory Pattern Normal 10/31/20 07:55 Blood Pressure 117/73 10/30/20 23:12 Blood Pressure Mean 77 10/25/20 12:40 Blood Pressure Position Sitting 10/24/20 14:32 Pulse Oximetry 97 10/30/20 23:12 Oxygen Delivery Method Bi-pap 10/30/20 23:12 Oxygen Flow Rate 2 10/30/20 15:17 Fraction of Inspired Oxygen (FIO2) 50 10/28/20 08:05 Pain Level 0 10/30/20 15:17 Comment 10/29/20 13:29 Intake & Output 10/30/20 10/30/20 10/31/20 11:59 23:59 11:59 Intake Total 480 / 1400 920 / 1400 1140 / 1140 Output Total 2700 / 4600 1900 / 4600 875 / 875 Balance -2220 / -3200 -980 / -3200 265 / 265 Weight 121.6 kg 120.6 kg Intake: Oral 480 / 1400 920 / 1400 1140 / 1140 Output: Urine 2700 / 4600 1900 / 4600 875 / 875 Other: Urine Color Yellow Yellow Yellow Urine Appearance Clear Clear Clear Urine Odor Normal None Comment per patient voided in toilet Voiding Methods Urinal Urinal Urinal Data Completed and Pending Completed studies during hospitalization [Text1]: CT chest/abdomen/pelvis: 1. No evidence of acute pulmonary emboli nor pulmonary infarction. 2. There are no pleural effusions.Mild cardiomegaly noted 3. There is now generalized anasarca as well as a small amount of ascites and haziness of the mesentery. 4. There is no evidence of bowel obstruction, free air, nor abscess 5. The anterior abdominal wall subcutaneous hematoma which was evident on the CT scan of November 2018 has significantly decreased in size. Echo 10/24/20: Technically limited study. RV is moderately dilated and moderately hypokinetic. The estimated PASP is at least 46 mmHg plus right arterial pressure. The interventricular septum is flat consistent with a right sided pressure load. These findings could be consistent with a pulmonary embolus. Global left ventricular function is hyperdynamic with no obvious segmental wall motion abnormalities. There is no hemodynamically significant valve disease. US abdomen; 1. Examination is limited by patient body habitus. 2. No ascites is seen sonographically. 3. Hepatomegaly. CXR; Mild left lower lobe infiltrate. Small left pleural effusion. Cardiomegaly. No pulmonary edema. PFTs 10/24/20: No evidence of obstructive airways disease on this simple spirometry. No bronchodilator testing was carried out. The pattern of findings on the spirometry may be of underlying restriction, either from restrictive lung disease or from restrictive physiology from chest wall restriction. Labs on day of discharge: Labs from last 24 hours 10/31/20 10/31/20 06:18 06:18 WBC 5.89 RBC 6.26 H Hgb 18.1 H Hct 58.9 H* MCV 94.1 MCH 28.9 MCHC 30.7 L RDW 14.1 Plt Count 114 L MPV 10.1 Immature Gran % 0.3 Neutrophils % 57.5 Lymphocytes % 22.6 Monocytes % 15.4 Eosinophils % 3.7 Basophils % 0.5 Nucleated RBC % 0 Absolute Neutrophils 3.38 Absolute Lymphocytes 1.33 Absolute Monocytes 0.91 H Absolute Eosinophils 0.22 Absolute Basophils 0.03 Sodium 140 Potassium 4.3 Chloride 98 Carbon Dioxide 39.6 H Anion Gap 2.4 L BUN 19 H Creatinine 0.8 Estimated GFR/1.73 m2 >= 60.00 Glucose 151 H Calcium 9.1 Magnesium 1.9 [facility] Medical History (Updated 10/31/20 @ 11:48 by Frances Rosenberg MD) Alcohol abuse Morbid obesity Nicotine dependence Surgical History History of tonsillectomy Family History (Updated 10/24/20 @ 11:03 by Tr uRiz MD) Mother Heart disease Social History Smoking/Tobacco Use Status: Current every day Tobacco Type: cigarettes Smoking risk assessment performed?: Yes Alcohol Intake: current Alcohol Intake frequency: 3 or more drinks per day Alcohol type: beer Drug use: Never Substance use type: does not use Do you feel safe at home: Yes Do you feel safe in your relationship?: Yes
--- NOTE | 2020-10-31 11:50 | PDOC.HHF2F_ITS ---
Home Health Certification Home Health Certification: 1. Encounter Date and Reason I certify that Mo Rayo was seen by Frances Rosenberg on 10/31/20 and that I had a [id number] encounter with this patient that meets the physician face to face encounter requirements. 2. Clinical Findings Supporting Skilled Need and Homebound Status I certify that home health services are medically necessary, include either intermittent snf and/or physical/speech therapy, and that this pat ient is homebound in that absences from the home require considerable and taxing effort and are infrequent or of short duration, or are attributable to the need to receive medical care. [X] (a) Attached documentation from encounter provides clinical findings supporting skilled need and homebound status (including what assistance patient requires to leave the home). The encounter with the patient was in whole, or in part, for the following medical condition, which is the primary reason for home health care: CHF Alf: new diagnosis of cor pulmonale, hypoxic hypercapnic respiratory failure, diabetes. Needs evaluation and teaching, assessments of weights/pulmonary status. Homebound: unable to leave home without assistance 3. Certification and Authentication I certify that I composed the above information based on my clinical judgement relating to this patient's medical condition and, if applicable, clinical findings communicated to me by the NPP or inpatient physician who performed the Home Health Referral. All further orders will be obtained through ___Dr Julia Gonzalez ee (Community Based Physician - PCP)
[2020-10-31 16:14] LABS: Erythropoietin 3.5 mIU/mL (2.6 - 18.5)
--- NOTE | 2020-10-31 17:30 | RESPIRATORY ---
Pt discharged on 3lpm O2 through [facility] as well as on an Astral for nocturnal use.
[2020-11-01 16:55] LABS: JAK2 Sequencing Result see interpretation
--- NOTE | 2020-11-01 18:24 | RESPIRATORY ---
Pt discharged on 3lpm through [facility] as well as on an Astral device.
[2020-11-02 10:59] LABS: JAK2 Result see interpretation
[2020-11-02 11:17] LABS: Thiamine (Vitamin B1), WB 247 nmol/L (70-180)
== END 2020-10-31 13:20 | disposition home health service (06) | DRG 291 ==
LOC: ER 12:49 → ICU 14:17 → MS 10-25 13:19
PROVIDERS: Internal Medicine; Nurse Practitioner Acute Care; Nurse Practitioner Family; Admitting Provider Family Medicine; Emergency Provider Emergency Medicine; Visit Provider Family Medicine
DX: I50.43 Acute on chronic combined systolic (congestive) and diastolic (congestive) heart failure (principal); J96.21 Acute and chronic respiratory failure with hypoxia; Z68.41 Body mass index [BMI] 40.0-44.9, adult; E66.2 Morbid (severe) obesity with alveolar hypoventilation; J96.12 Chronic respiratory failure with hypercapnia; F17.210 Nicotine dependence, cigarettes, uncomplicated; J45.909 Unspecified asthma, uncomplicated; Z20.822 Contact with and (suspected) exposure to COVID-19; E11.9 Type 2 diabetes mellitus without complications; F10.20 Alcohol dependence, uncomplicated; I27.81 Cor pulmonale (chronic); I27.29 Other secondary pulmonary hypertension; D75.1 Secondary polycythemia; D69.6 Thrombocytopenia, unspecified; F41.9 Anxiety disorder, unspecified; E83.42 Hypomagnesemia; J98.4 Other disorders of lung
CPT/HCPCS: 0027U; 36415; 71275; 74177; 80048; 80053; 80076; 82668; 82805; 86704; 86706; 86709; 86803; 87340; 87635; 93005; 94640; 96374; 99285; J1650; 36600; 71046; 76705; 81270; 82103; 82607; 82728; 83036; 83540; 83550; 83735; 83880; 84425; 84466; 84484; 85025; 85379; 85610; 85730; 93010; 93306; 94010; 94660; 99222; 99232; 99233; 99239; 99284; J1940; J1941; J3475; J3490; J7620; Q9967

== ENCOUNTER 2020-11-14 10:27 | Outpatient (CLI) | payer MEDICAID, SELFPAY ==
[2020-11-14 14:03] LABS: Abs Immature Grans 0.02 10^3/uL (0.0-0.06); Absolute Basophil Count 0.05 10^3/uL (0.0-0.2); Absolute Eosinophil Count 0.13 10^3/uL (0.0-0.7); Absolute Monocyte Count 1.02 10^3/uL (0.1-0.8); Absolute Neutrophil Count 4.16 10^3/uL (1.2-6.7); Basophils % 0.7; Eosinophils % 1.8; HGB 17.7 g/dL (13.5-17.5); Immature Grans % 0.3; Lymphocytes % 27.1; MCH 28.5 pg (27.0-33.0); MCV 92.1 fL (80-95); MPV 9.8 fL (8.0-11.0); Monocytes % 13.8; Neutrophils % 56.3; Nucleated RBC 0 %; Platelet Count 226 10^3/uL (130-400); RDW 13.7 % (11.8-14.1); RDW-SD 46.5 fL; WBC 7.38 10^3/uL (4.4-10.8)
[2020-11-14 14:10] LABS: HCT 57.1 % (40.0-50.0)
[2020-11-14 14:18] LABS: ALT 48 U/L (16-63); AST 30 U/L (15-37); Albumin 3.6 g/dL (3.4-5.0); Alkaline Phosphatase 145 U/L (46-116); Anion Gap 7.8 mmol/L (3-11); BUN 15 mg/dL (7-18); Bilirubin, Total 0.7 mg/dL (0.2-1.0); CO2 33.2 mmol/L (21.0-32.0); CREATININE 1.1 mg/dL (0.70-1.30); Calcium 9.4 mg/dL (8.5-10.1); Chloride 104 mmol/L (98-107); Glucose 138 mg/dL (74-106); Potassium 3.8 mmol/L (3.5-5.1); Sodium 145 mmol/L (136-145); Total Protein 7.8 g/dL (6.4-8.2)
[2020-11-14 14:32] LABS: Diff Comment Diff Reviewed; RBC Morphology Normal
== END 2020-11-14 10:28 | disposition home or self-care (01) ==
LOC: LBO 11-15 10:28
PROVIDERS: PCP Family Medicine; Visit Provider Nurse Practitioner
DX: R79.89 Other specified abnormal findings of blood chemistry (principal); J45.909 Unspecified asthma, uncomplicated
CPT/HCPCS: 36415; 80053; 85025

== ENCOUNTER 2021-01-10 04:57 | Outpatient (CLI) | payer OTHER, MEDICAID, SELFPAY ==
[2021-01-10 13:40] VITALS: PULSE 125; PULSE 87; PULSE 92; RESP 18; RESP 20; O2SAT 78; O2SAT 80; O2SAT 92
== END 2021-01-10 04:58 | disposition home or self-care (01) ==
LOC: RT 04:57
PROVIDERS: PCP Family Medicine; Visit Provider Pediatrics Pediatric Rheumatology
DX: Z02.71 Encounter for disability determination (principal)
CPT/HCPCS: 94618

== ENCOUNTER 2021-10-31 03:40 | Outpatient (CLI) | payer MEDICAID, SELFPAY ==
[2021-10-31] MEDS: Albuterol HFA 18 GM 200 PUFF INH IH (09:50)
[2021-10-31] MEDS: Inhaler, Assist Device 1 EACH MC (09:50)
--- NOTE | 2021-11-01 17:09 | W.PFT ---
Date of service: 10/31/21 Time of Service: 08:56 Pulmonary Function Test Result Requesting Provider Abiolae Indications: Restrictive lung disease Interpretation Spirometry: There is no airflow limitation. based o nthe FEV1/FVC ratio, however mild airflow limitation is suggested by the volume time curve. There is no significant bronchodilator response. Lung Volumes: Lung volumes are normal Diffusion Capacity: Normal diffusion Airway Pressure: Normal airways resistance Impression Possible mild airflow limitation. Otherwise, normal pulmonary function testing. Clinical Correlation therefore is recommended.
== END 2021-10-31 03:41 | disposition home or self-care (01) ==
LOC: RT 03:40
PROVIDERS: PCP Family Medicine; Visit Provider Student in an Organized Health Care Education/Training Program
DX: J44.9 Chronic obstructive pulmonary disease, unspecified (principal); R06.09 Other forms of dyspnea; R05.8 Other specified cough; F17.210 Nicotine dependence, cigarettes, uncomplicated
CPT/HCPCS: 94060; 94726; 94729

== ENCOUNTER 2021-10-31 03:48 | Outpatient (CLI) | payer MEDICAID, SELFPAY ==
[2021-10-31 09:01] LABS: BE 9 mmol/L (-2-3); HCO3 32 mmol/L (22-26); pCO2 45 mmHg (35-45); pH 7.46 (7.35-7.45); pO2 107 mmHg (80-105); sO2 98 % (95-98); tCO2 28 mmol/L (23-27)
[2021-10-31 09:03] LABS: FIO2L 3 L; Site Right Radial
--- NOTE | 2021-11-01 17:14 | W.PFT ---
Date of service: 10/29/21 Time of Service: 09:28 Pulmonary Function Test Result Requesting Provider Temi Rosenberg Indications: COPD Interpretation Spirometry: There is no airflow limitation. Spirometry appears restrictive. Impression Restrictive appearing spirometry, recommend full PFT's for further evaluation. Clinical Correlation therefore is recommended.
== END 2021-10-31 03:49 | disposition home or self-care (01) ==
LOC: RT 03:48
PROVIDERS: PCP Family Medicine; Visit Provider Student in an Organized Health Care Education/Training Program
DX: J44.9 Chronic obstructive pulmonary disease, unspecified (principal); R94.2 Abnormal results of pulmonary function studies
CPT/HCPCS: 82805; 36600

== ENCOUNTER 2022-02-11 02:10 | Outpatient (CLI) | payer MEDICAID, SELFPAY | END 2022-02-11 02:11 | LOC: RT 02:10 | PROVIDERS: PCP Family Medicine; Visit Provider Student in an Organized Health Care Education/Training Program | DX: J96.91 Respiratory failure, unspecified with hypoxia (principal) | CPT/HCPCS: 94618 ==

== ENCOUNTER → 2022-03-11 02:37 | Outpatient (CLI) | payer MEDICAID, SELFPAY ==
--- NOTE | 2022-03-11 07:00 | DI.US_ITS ---
APPROVED REPORT EXAM: Comprehensive 2D, Doppler, and color-flow Echocardiogram Patient Location: Out-Patient [employer] Vehicle Driver: Lola Gomez RDCS (AE) Indications: f/u RV failure and PHTN Other Information Study Quality: Adequate Conclusion Normal left ventricular wall thickness and chamber size. Estimated ejection fraction is 55 to 60%. Wall motion is normal Normal right ventricular size and systolic function Both atria are normal in size There is no structural or hemodynamically significant valvular disease Mildly dilated ascending aorta measuring 3.55 cm Right ventricular systolic pressure could not be estimated Wall motion Left Ventricle The left ventricle is normal size. The left ventricular systolic function is normal. The left ventric ular ejection fraction is within the normal range. There is normal left ventricular wall thickness. T here is normal LV segmental wall motion. There is no ventricular septal defect visualized. LVEF is 55 -60%. Right Ventricle The right ventricle is normal size. The right ventricular systolic function is normal. Atria The left atrium size is normal. The right atrium size is normal. The interatrial septum is intact wit h no evidence for an atrial septal defect. Aortic Valve The aortic valve is normal in structure. Aortic valve is trileaflet. There is no aortic valvular sten osis. No aortic regurgitation is present. Mitral Valve The mitral valve is normal in structure. No evidence of mitral valve stenosis. Trace to mild mitral r egurgitation. Tricuspid Valve The tricuspid valve is normal in structure. There is no tricuspid valve stenosis. Trace tricuspid reg urgitation. Unable to assess PA pressure. Pulmonic Valve The pulmonary valve is normal in structure. There is no pulmonic valvular stenosis. There is no pulmo jenae valvular regurgitation. Great Vessels The aortic root is normal in size. The ascending aorta is mildly dilated. IVC is normal in size and c ollapses >50% with inspiration. Pericardium There is no pericardial effusion. 2D Dimensions IVSD d PLAX 1.37 cm M: 0.6-1.2 LV Vol A2C d MOD 117.8 mL LVPW d PLAX 1.33 cm M: 0.6 - 1.2 LV Vol A4C d MOD 98.2 mL LVID d PLAX 4.60 cm M: 4.2 - 5.8 LA vol/ BSA A4C s A-L 24.9 mL/m2 LVDs 3.30 cm M: 2.5 - 4.0 LA Area A4C s MOD 19.09 cm2 Ao Root d 3.30 cm M: 3.1 - 3.7 LV EF A4C MOD 55.5 % RA Area A4C 13.84 cm2 LV EF A2C MOD 55.2 % RA Vol/ BSA A4C s A-L 16.1 mL/m2 LV EF Biplane MOD 54.5 % Ao Asc Diam d 3.55 cm M: 2.6 - 3.4 SV 61.32 mL LV EF Teichholz 53.1 % SV Index 28.01 mL/m2 LVEF (Springer's) 54.49 % M: 52 - 72 LV Volume 81.98 mL M: 62 - 150 LV Volume Index 37.43 mL/m2 M: 34 - 74 LV Vol Biplane MOD 112.5 mL FS 27.25 % M-Mode TAPSE 1.45 cm (M/F) >1.7 LV Diastology MV E' medial 0.081 (>0.07 m/s) E/A Ratio 0.9 LV E/e MED 6.85 (<14) MV E Vmax 0.56 (0.4-1.3 m/s) MV E' lateral 0.098 (>0.1 m/s) MV A Vmax 0.65 (0.4-1.3 m/s) LV E/e LAT 5.70 (<14) MV E/A Ratio 0.80 MV E/E' medial 6.87 MV E/E' lateral 5.70 Aortic Valve LVOT Area 4.09 cm2 AoV Area Vmax 3.69 cm2 LVOT Vmax 1.07 m/s AoV Area/ BSA (Vmax) 1.68 cm2/m2 LVOT Mean Alex. 0.70 m/s ANAMARIA Mean Alex. 3.48 cm2 LVOT Peak Grad 4.6 mmHg ANAMARIA Mean Alex. Index 1.59 cm2/m2 LVOT Mean Grad 2.3 mmHg LVOT VTI 0.212 m LVOT Diam s 2.25 cm AoV Vmax 1.19 m/s Velocity Ratio 0.89 AoV Mean Alex. 0.82 m/s AoV Peak Grad 5.6 mmHg LVOT SV 86.68 mL AoV Mean Grad 3.0 mmHg AoV VTI 0.210 m AoV Area VTI 4.12 cm2 AoV Area/ BSA (VTI) 1.88 cm/m2 Mitral Valve MV DT 118 (160-240 msec) MV PHT 34 msec MV Area PHT 6.42 cm2 MV VTI 0.138 m MV Area VTI 6.26 (4.0-6.0 cm2) Pulmonary Valve PV Vmax 0.87 (0.5-1.5 m/s) RVOT Peak Gr. 1.87 mmHg PV Peak Grad 3.1 mmHg RVOT Mean Gr. 0.90 mmHg PV Mean Grad 1.7 mmHg RVOT VTI 0.117 m PV VTI 0.132 m RVOT Vmax 0.68 m/s
== END ==
PROVIDERS: PCP Family Medicine; Visit Provider Student in an Organized Health Care Education/Training Program
DX: I50.810 Right heart failure, unspecified (principal)
CPT/HCPCS: 93306

== ENCOUNTER 2022-10-21 02:06 | Outpatient (CLI) | payer MEDICAID, SELFPAY ==
[2022-10-21 10:00] LABS: Calculated LDL 129 mg/dL (<100); Cholesterol 198 mg/dL (<200); HDL Cholesterol 53 mg/dL (40-60); Triglyceride 82 mg/dL (<150)
== END 2022-10-21 02:07 | disposition home or self-care (01) ==
LOC: LBO 02:06
PROVIDERS: PCP Family Medicine; Visit Provider Family Medicine
DX: E11.69 Type 2 diabetes mellitus with other specified complication (principal); E66.8 Other obesity
CPT/HCPCS: 36415; 80061

== ENCOUNTER 2022-11-12 01:37 | Outpatient (CLI) | payer MEDICAID, SELFPAY ==
--- NOTE | 2022-11-12 07:00 | DI.CTLCSR_ITS ---
Exam(s) CT CHEST LUNG CANCER SCREEN EXAM: CT CHEST LUNG CANCER SCREEN CLINICAL HISTORY: Screening for lung cancer, current smoker, F17.200 TECHNIQUE: Imaging Protocol: Axial computed tomography images with coronal and sagittal reformatted images were created and reviewed. Low dose screening protocol. COMPARISON: CT CT CHEST PE ABD PELVIS W from 10/24/2020 FINDINGS: Tracheobronchial tree: No bronchiectasis or mucus plugging.. Mediastinum and Анна: No dominant adenopathy or fluid collection. Pulmonary parenchyma: No consolidation or dominant measurable mass. Mild emphysematous changes. Mild scarring near right minor fissure. Lung Nodules: None. Pleura: No effusion. No pneumothorax. Heart: The heart is not dilated. Mild coronary artery calcifications are seen. Aorta: Thoracic aorta non-dilated. Upper abdomen: Unremarkable. Bones: Unremarkable for age. Soft Tissues: Mild bilateral gynecomastia. IMPRESSION: No suspicious pulmonary nodules. Lung RADS Cat 1 - Negative: No nodules and definitely benign nodules Lung-RADS 1.0 CATEGORIES: Category 0 - Prior chest CT exam(s) being located for comparison. Category 1 - Annual screening in 12 months. No nodules or definitely benign nodules. Category 2 - Annual screening in 12 months. Benign appearance. Nodules with low likelihood of becomin g active cancer. Category 3 - 6-month follow-up. Probably benign. Short-term follow-up suggested. Nodules with low lik elihood of becoming active cancer. Category 4A - 3-month follow-up and CT/PET if >8 mm in size. Suspicious finding. Findings which requi re additional testing. Category 4B - Findings which require additional testing and tissue sampling. Category 4X - Category 3 or 4 nodules with additional features or imaging findings that increases the suspicion of malignancy. Modifier S- Potentially clinically significant findings (non lung cancer) RADIATION DOSE DELIVERED: 92.05mGy.cm Total DLP DATA REPOSITORY: All CT scans at this facility are submitted to the National Radiology Data Registry (NRDR) Dose Index Registry (DIR) with the [employer] (A[employer]). RADIATION OPTIMIZATION: All CT scans at this facility use at least one of these dose optimization te chniques: automated exposure control; mA and/or kV adjustment per patient size (includes targeted exa ms where dose is matched to clinical indication); or iterative reconstruction.
== END 2022-11-12 01:57 ==
LOC: DI 01:37
PROVIDERS: PCP Family Medicine; Visit Provider Physician Assistant Surgical
DX: Z12.2 Encounter for screening for malignant neoplasm of respiratory organs; F17.210 Nicotine dependence, cigarettes, uncomplicated
CPT/HCPCS: 71271

== ENCOUNTER 2023-04-30 02:53 | Outpatient (CLI) | payer MEDICAID, SELFPAY ==
[2023-04-30 12:13] LABS: ALT 37 U/L (16-63); AST 25 U/L (15-37); Albumin 4.1 g/dL (3.4-5.0); Alkaline Phosphatase 101 U/L (46-116); Anion Gap 13.8 mmol/L (3-11); BUN 13 mg/dL (7-18); Bilirubin, Total 0.6 mg/dL (0.2-1.0); CO2 30.2 mmol/L (21.0-32.0); CREATININE 1.3 mg/dL (0.70-1.30); Chloride 97 mmol/L (98-107); Estimated GFR 66.93 (mL/min/1.73m2); Glucose 102 mg/dL (74-106); Sodium 141 mmol/L (136-145); Total Protein 8.3 g/dL (6.4-8.2); Uric Acid 11.7 mg/dL (3.5-7.2)
== END 2023-04-30 02:54 | disposition home or self-care (01) ==
LOC: LBO 02:54
PROVIDERS: PCP Family Medicine; Referring Provider Family Medicine; Visit Provider Family Medicine
DX: E11.69 Type 2 diabetes mellitus with other specified complication (principal); E66.9 Obesity, unspecified; M10.9 Gout, unspecified
CPT/HCPCS: 36415; 80053; 84550

== ENCOUNTER 2023-07-02 01:46 | Outpatient (CLI) | payer MEDICARE, MEDICAID, SELFPAY ==
[2023-07-02 10:21] LABS: Anion Gap 7.2 mmol/L (3-11); BUN 9 mg/dL (7-18); CO2 32.8 mmol/L (21.0-32.0); CREATININE 1.2 mg/dL (0.70-1.30); Calcium 8.8 mg/dL (8.5-10.1); Chloride 100 mmol/L (98-107); Estimated GFR 73.67 (mL/min/1.73m2); Glucose 182 mg/dL (74-106); Potassium 3.3 mmol/L (3.5-5.1); Sodium 140 mmol/L (136-145)
== END 2023-07-02 01:47 | disposition home or self-care (01) ==
PROVIDERS: PCP Family Medicine; Visit Provider Family Medicine
DX: E87.6 Hypokalemia (principal)
CPT/HCPCS: 36415; 80048

== ENCOUNTER → 2023-10-29 10:38 | Outpatient (BNVA) | payer MEDICARE, MEDICAID, SELFPAY | PROVIDERS: PCP Family Medicine; Referring Provider Family Medicine; Visit Provider Physician Assistant Surgical | DX: I27.20 Pulmonary hypertension, unspecified (principal); I50.810 Right heart failure, unspecified; J43.9 Emphysema, unspecified; J96.91 Respiratory failure, unspecified with hypoxia | CPT/HCPCS: 99214 ==

== ENCOUNTER → 2023-11-25 02:05 | Outpatient (CLI) | payer MEDICARE, MEDICAID, SELFPAY ==
--- NOTE | 2023-11-25 10:02 | DI.CTLCSR_ITS ---
Exam(s) CT CHEST LUNG CANCER SCREEN EXAM: CT CHEST LUNG CANCER SCREEN CLINICAL HISTORY: Screening for lung cancer,former smoker, z87.891. TECHNIQUE: Imaging Protocol: Low Dose Technique CONTRAST MATERIAL: None COMPARISON: CT CT CHEST PE ABD PELVIS W from 10/24/[address] CHEST LUNG CANCER SCREEN from 11/12/2022 FINDINGS: CHEST: LUNGS: There are no ominous pulmonary nodules. There are unchanged mild increased markings in the jesse gular segment of the left lung and in the anterior aspect of the right upper lobe. There are no pleu ral effusions. MEDIASTINUM: There is no obvious hilar nor mediastinal adenopathy. CARDIAC: Heart size is normal. There is no pericardial effusion.Caliber of the thoracic aorta is wit hin normal limits. OTHER: OSSEOUS: No significant osseous lesions.No fractures.. IMPRESSION: 1. No significant lung nodules, new infiltrates, pleural effusions nor intrathoracic adenopathy. 2. Unchanged benign-appearing increased markings in the anterior segment of the right upper lobe and lingular segment of the left lung, unchanged. 3. Lung RADS Cat 1 - Negative: No nodules and definitely benign nodules Lung-RADS 1.0 CATEGORIES: Category 0 - Prior chest CT exam(s) being located for comparison. Category 1 - Annual screening in 12 months. No nodules or definitely benign nodules. Category 2 - Annual screening in 12 months. Benign appearance. Nodules with low likelihood of becomin g active cancer. Category 3 - 6-month follow-up. Probably benign. Short-term follow-up suggested. Nodules with low lik elihood of becoming active cancer. Category 4A - 3-month follow-up and CT/PET if >8 mm in size. Suspicious finding. Findings which requi re additional testing. Category 4B - Findings which require additional testing and tissue sampling. Category 4X - Category 3 or 4 nodules with additional features or imaging findings that increases the suspicion of malignancy. Modifier S- Potentially clinically significant findings (non lung cancer) RADIATION DOSE DELIVERED: Total DLP DATA REPOSITORY: All CT scans at this facility are submitted to the National Radiology Data Registry (NRDR) Dose Index Registry (DIR) with the [employer] ([employer]). RADIATION OPTIMIZATION: All CT scans at this facility use at least one of these dose optimization te chniques: automated exposure control; mA and/or kV adjustment per patient size (includes targeted exa ms where dose is matched to clinical indication); or iterative reconstruction.
== END ==
PROVIDERS: PCP Family Medicine; Visit Provider Student in an Organized Health Care Education/Training Program
DX: Z12.2 Encounter for screening for malignant neoplasm of respiratory organs (principal); R91.8 Other nonspecific abnormal finding of lung field; Z87.891 Personal history of nicotine dependence
CPT/HCPCS: 71271

== ENCOUNTER 2023-12-01 01:44 | Outpatient (CLI) | payer MEDICARE, MEDICAID, SELFPAY | END 2023-12-01 01:45 | disposition home or self-care (01) | LOC: RT 01:44 | PROVIDERS: PCP Family Medicine; Visit Provider Physician Assistant Surgical | DX: J98.6 Disorders of diaphragm (principal) | CPT/HCPCS: 94010 ==

== ENCOUNTER 2023-12-07 12:57 | Outpatient (CLI) | payer MEDICARE, MEDICAID, SELFPAY ==
--- NOTE | 2023-12-17 15:18 | W.NOCTURNAL ---
Date of service: 12/07/23 Time of Service: 18:00 Nocturnal Oximetry Note: Overnight oximetry on room air and no BiPAP. Patient demonstrated 164 minutes below 88%. Lowest O2 sat 84%.
== END 2023-12-07 12:58 | disposition home or self-care (01) ==
PROVIDERS: PCP Family Medicine; Visit Provider Physician Assistant Surgical
DX: J96.91 Respiratory failure, unspecified with hypoxia (principal)
CPT/HCPCS: 00123; 94762

== ENCOUNTER → 2024-04-26 12:39 | Outpatient (BNVA) | payer MEDICARE, SELFPAY | PROVIDERS: PCP Family Medicine; Referring Provider Family Medicine; Visit Provider Physician Assistant Surgical | DX: J43.9 Emphysema, unspecified (principal); J96.91 Respiratory failure, unspecified with hypoxia; I27.20 Pulmonary hypertension, unspecified; I50.810 Right heart failure, unspecified | CPT/HCPCS: 99214 ==

== ENCOUNTER 2024-05-18 02:21 | Outpatient (CLI) | payer MEDICARE, SELFPAY ==
--- NOTE | 2024-05-18 07:00 | DI.RAD_ITS ---
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 CONTRAST MATERIAL: Refer to procedure report. COMPARISON: CR XR CHEST 2V PA LATERAL from 10/25/2020 FINDINGS: Chest x-ray: MEDIASTINUM: Normal. HEART: Normal. PULMONARY VASCULATURE: Normal. LUNGS: Clear. PLEURAL SPACE: No pleural effusion or pneumothorax. BONE:Within normal limits for the patient's age. OTHER FINDINGS:Normal. Fluoroscopy was provided during the performance of a sniff test. There is a normal and symmetric exc ursion of the hemidiaphragms during the examination. Ka,r=48.7 mGy IMPRESSION: Normal diaphragmatic movement during the examination. RADIATION DOSE DELIVERED: 0.0 0.0 0
== END 2024-05-18 02:41 ==
PROVIDERS: PCP Family Medicine; Visit Provider Physician Assistant Surgical
DX: J98.6 Disorders of diaphragm (principal)
CPT/HCPCS: 76000

== ENCOUNTER 2024-11-15 09:04 | Outpatient (CLI) | payer MEDICARE, SELFPAY ==
[2024-11-15 09:29] LABS: Anion Gap 10.0 mmol/L (3-11); BUN 11 mg/dL (7-18); CO2 31.0 mmol/L (21.0-32.0); Calcium 9.6 mg/dL (8.5-10.1); Chloride 99 mmol/L (98-107); Estimated GFR 66.10 (mL/min/1.73m2); Glucose 106 mg/dL (74-106); Potassium 3.4 mmol/L (3.5-5.1); Sodium 140 mmol/L (136-145)
[2024-11-15 10:54] LABS: Hemoglobin A1C 5.6 % (<5.7)
== END 2024-11-15 09:05 | disposition home or self-care (01) ==
LOC: LBO 09:05
PROVIDERS: PCP Family Medicine; Visit Provider Family Medicine
DX: E11.69 Type 2 diabetes mellitus with other specified complication (principal); E66.9 Obesity, unspecified
CPT/HCPCS: 36415; 80048; 83036

== ENCOUNTER 2024-11-25 00:25 | Outpatient (CLI) | payer MEDICARE, SELFPAY ==
--- NOTE | 2024-11-25 11:05 | DI.CTLCSR_ITS ---
Exam(s) CT CHEST LUNG CANCER SCREEN EXAM: CT CHEST LUNG CANCER SCREEN CLINICAL HISTORY: Screening for lung cancer,former tobacco use,z87.891 TECHNIQUE: Imaging Protocol: Axial computed tomography images with coronal and sagittal reformatted images were created and reviewed. Lung Computer Aided Detection (CAD) was utilized. COMPARISON: CT CT CHEST LUNG CANCER SCREEN from 11/12/2022 FINDINGS: Tracheobronchial tree: Patent where visualized. No bronchiectasis. Pulmonary parenchyma: No consolidation or dominant measurable mass. There is stable parenchymal scarring. Lung Nodules: There are no suspicious pulmonary nodules. Mediastinum and Анна: No dominant adenopathy or fluid collection. The esophagus is unremarkable. Thyroid gland: Unremarkable. Lymph nodes: Unremarkable. Pleura: No effusion or pneumothorax. Heart: The heart is not dilated. Mild coronary artery calcification is present. No pericardial effusion. Aorta: Thoracic aorta non-dilated.Mild atherosclerotic calcification is present. Upper abdomen: Unremarkable. Soft Tissues: Unremarkable. Bones: Within normal limits. There are old healed bilateral rib fracture deformities. IMPRESSION: No suspicious pulmonary nodules. Lung RADS Cat 1 - Negative: No nodules and definitely benign nodules Lung-RADS 1.0 CATEGORIES: Category 0 - Prior chest CT exam(s) being located for comparison. Category 1 - Annual screening in 12 months. No nodules or definitely benign nodules. Category 2 - Annual screening in 12 months. Benign appearance. Nodules with low likelihood of becoming active cancer. Category 3 - 6-month follow-up. Probably benign. Short-term follow-up suggested. Nodules with low likelihood of becoming active cancer. Category 4A - 3-month follow-up and CT/PET if >8 mm in size. Suspicious finding. Findings which require additional testing. Category 4B - Findings which require additional testing and tissue sampling. Suspicious finding. Category 4X - Category 3 or 4 nodules with additional features or imaging findings that increases the suspicion of malignancy. Modifier S- Potentially clinically significant finding. (Non lung cancer) RADIATION DOSE DELIVERED: 97.27mGy.cm Total DLP 97.27mGy.cmTotal DLP DATA REPOSITORY: All CT scans at this facility are submitted to the National Radiology Data Registry (NRDR) Dose Index Registry (DIR) with the [employer] ([employer]). RADIATION OPTIMIZATION: All CT scans at this facility use at least one of these dose optimization techniques: automated exposure control; mA and/or kV adjustment per patient size (includes targeted exams where dose is matched to clinical indication); or iterative reconstruction.
== END 2024-11-25 00:45 ==
LOC: DI 00:26
PROVIDERS: PCP Family Medicine; Visit Provider Family Medicine
DX: Z12.2 Encounter for screening for malignant neoplasm of respiratory organs (principal); Z87.891 Personal history of nicotine dependence
CPT/HCPCS: 71271

== ENCOUNTER → 2025-04-25 10:01 | Outpatient (BNVA) | payer MEDICARE, SELFPAY | PROVIDERS: PCP Family Medicine; Referring Provider Family Medicine; Visit Provider Physician Assistant Surgical | DX: I27.20 Pulmonary hypertension, unspecified (principal); I50.810 Right heart failure, unspecified; J43.9 Emphysema, unspecified; J96.91 Respiratory failure, unspecified with hypoxia; Z87.891 Personal history of nicotine dependence | CPT/HCPCS: 99214 ==